=== PATIENT | male | born 1950 | race African-American/Black ===

== ENCOUNTER → 2017-01-05 | Outpatient (CLI) | payer MEDICARE ==
--- NOTE | 2017-01-05 16:14 | US ---
EXAMINATION TYPE: US venous doppler duplex LE LT DATE OF EXAM: 01/05/2017 3:51 PM COMPARISON: NONE CLINICAL HISTORY: M79.662 Pain, R22.42 Swelling. Fall last week and now back leg pain, no swelling, n o h/o dvt SIDE PERFORMED: Left VESSELS IMAGED: External Iliac Vein (EIV) Common Femoral Vein Deep Femoral Vein Greater Saphenous Vein * Femoral Vein Popliteal Vein Small Saphenous Vein * Proximal Calf Veins (* superficial vessels) TECHNOLOGIST IMPRESSION: Left Leg: Appears negative for DVT *(8tech impression to Dr Valle's office @ 355 IMPRESSION: 1. No ultrasound evidence deep venous thrombosis left lower extremity.
== END | disposition home or self-care (01) ==
LOC: RADUSWWP 15:05
PROVIDERS: ATTEND Internal Medicine
DX: M79.662 Pain in left lower leg (principal); R22.42 Localized swelling, mass and lump, left lower limb

== ENCOUNTER 2018-09-07 18:45 | Inpatient (IN) | payer MEDICARE ==
[2018-09-07] MEDS ORDERED: ONDANSETRON 4 MG/2 ML VIAL IVP STA (19:07)
[2018-09-07] MEDS ORDERED: PANTOPRAZOLE 40 MG/10 ML VIAL IVP STA (19:07)
--- NOTE | 2018-09-07 19:11 | ED ---
General Adult HPI - General Chief complaint: Abdominal Pain Stated complaint: Abd pain Time Seen by Provider: 09/07/18 18:55 Source: patient, EMS, RN notes reviewed Mode of arrival: EMS Limitations: no limitations - History of Present Illness Initial comments: This is a 67-year-old male who presents emergency Department with a past medical history significant for diabetes hypertension and being an alcoholic. Patient comes in today stating he had a few glasses of wine today and about 2 hours prior to arrival he started having severe epigastric abdominal pain and nausea. Patient states he did not vomit however. Patient states she's had no diarrhea. Patient states the pain is crampy in nature and does not radiate anywhere. Patient denies any chest pain palpitations difficulty breathing shortness of breath. Patient denies any diaphoretic episodes. Patient denies any recent fevers or chills. Patient denies having similar symptoms as per patient denies any history of pancreatitis. Patient denies any surgery on his abdomen. - Related Data Home Medications Medication Instructions Recorded Confirmed Allopurinol [Zyloprim] 300 mg PO DAILY 10/11/17 09/07/18 Hydrochlorothiazide 25 mg PO DAILY 10/11/17 09/07/18 Lisinopril [Zestril] 20 mg PO BID 10/11/17 09/07/18 Simvastatin [Zocor] 20 mg PO DAILY 10/11/17 09/07/18 metFORMIN HCL [Glucophage] 500 mg PO BID 10/11/17 09/07/18 Atenolol [Tenormin] 25 mg PO BID 10/12/17 09/07/18 Ergocalciferol (Vitamin D2) 50,000 unit PO Q7D 09/07/18 09/07/18 [Vitamin D2] Sildenafil [Revatio] 20 mg PO DAILY 09/07/18 09/07/18 traMADol HCL [Ultram] 50 mg PO Q8H PRN 09/07/18 09/07/18 Allergies Allergy/AdvReac Type Severity Reaction Status Date / Time No Known Allergies Allergy Verified 09/07/18 19:18 Review of Systems ROS Statement: Those systems with pertinent positive or pertinent negative responses have been documented in the HPI. ROS Other: All systems not noted in ROS Statement are negative. Past Medical History Past Medical History: Diabetes Mellitus, Hyperlipidemia, Hypertension, Rheumatoid Arthritis (RA), Seizure Disorder Additional Past Medical History / Comment(s): GOUT. History of Any Multi-Drug Resistant Organisms: None Reported Past Surgical History: Orthopedic Surgery Additional Past Surgical History / Comment(s): RIGHT knee replacement. Past Anesthesia/Blood Transfusion Reactions: No Reported Reaction Past Psychological History: No Psychological Hx Reported Smoking Status: Light tobacco smoker Past Alcohol Use History: Occasional Past Drug Use History: None Reported - Past Family History Mother Family Medical History: Unable to Obtain General Exam - General Exam Comments Initial Comments: GENERAL: Patient is well-developed and well-nourished. Patient is nontoxic and well- hydrated and is in mild distress. ENT: Neck is soft and supple. No significant lymphadenopathy is noted. Oropharynx is clear. Moist mucous membranes. Neck has full range of motion without eliciting any pain. EYES: The sclera were anicteric and conjunctiva were pink and moist. Extraocular movements were intact and pupils were equal round and reactive to light. Eyelids were unremarkable. PULMONARY: Unlabored respirations. Good breath sounds bilaterally. No audible rales rhonchi or wheezing was noted. CARDIOVASCULAR: There is a regular rate and rhythm without any murmurs gallops or rubs. ABDOMEN: Patient has right upper and epigastric abdominal pain. No palpable organomegaly was noted. There is no palpable pulsatile mass. SKIN: Skin is clear with no lesions or rashes and otherwise unremarkable. NEUROLOGIC: Patient is alert and oriented x3. Cranial nerves II through XII are grossly intact. Motor and sensory are also intact. Normal speech, volume and content. Symmetrical smile. MUSCULOSKELETAL: Normal extremities with adequate strength and full range of motion. No lower extremity swelling or edema. No calf tenderness. LYMPHATICS: No significant lymphadenopathy is noted PSYCHIATRIC: Normal psychiatric evaluation. Limitations: no limitations Course Vital Signs 09/07/18 18:53 Temperature 98 F Pulse Rate 78 Respiratory 18 Rate Blood Pressure 115/73 O2 Sat by Pulse 98 Oximetry Medical Decision Making - Medical Decision Making EKG shows sinus rhythm at 70 bpm GA interval is 256 QRS is 102 QT interval 432 QTC is 492. Patient's EKG shows some T-wave inversions in leads II, III, and F aVF. There is also some T-wave inversions in the precordial leads V4 V5 and V6. New. Computed tomography scan shows some mild pulmonary edema. Patient has pancreatitis. Patient is also intoxicated. Patient will be admitted. - Lab Data Result diagrams: 09/07/18 18:58 09/07/18 18:58 Lab Results 09/07/18 09/07/18 09/07/18 Range/Units 18:58 18:58 18:58 WBC 7.6 (3.8-10.6) k/uL RBC 4.52 (4.30-5.90) m/uL Hgb 13.5 (13.0-17.5) gm/dL Hct 42.5 (39.0-53.0) % MCV 94.0 (80.0-100.0) fL MCH 29.9 (25.0-35.0) pg MCHC 31.8 (31.0-37.0) g/dL RDW 13.6 (11.5-15.5) % Plt Count 227 (150-450) k/uL Neutrophils % 43 % Lymphocytes % 46 % Monocytes % 5 % Eosinophils % 2 % Basophils % 1 % Neutrophils # 3.2 (1.3-7.7) k/uL Lymphocytes # 3.5 (1.0-4.8) k/uL Monocytes # 0.4 (0-1.0) k/uL Eosinophils # 0.1 (0-0.7) k/uL Basophils # 0.0 (0-0.2) k/uL PT (9.0-12.0) sec INR (<1.2) APTT (22.0-30.0) sec Sodium 141 (137-145) mmol/L Potassium 4.0 (3.5-5.1) mmol/L Chloride 104 (98-107) mmol/L Carbon Dioxide 24 (22-30) mmol/L Anion Gap 13 mmol/L BUN 30 H (9-20) mg/dL Creatinine 1.56 H (0.66-1.25) mg/dL Est GFR (CKD-EPI)AfAm 53 (>60 ml/min/1.73 sqM) Est GFR (CKD-EPI)NonAf 46 (>60 ml/min/1.73 sqM) Glucose 254 H (74-99) mg/dL Calcium 9.9 (8.4-10.2) mg/dL Total Bilirubin 0.4 (0.2-1.3) mg/dL AST 23 (17-59) U/L ALT 23 (21-72) U/L Alkaline Phosphatase 76 (38-126) U/L Total Creatine Kinase 272 H (55-170) U/L CK-MB (CK-2) 2.1 (0.0-2.4) ng/mL CK-MB (CK-2) Rel Index 0.8 Troponin I <0.012 (0.000-0.034) ng/mL Total Protein 7.6 (6.3-8.2) g/dL Albumin 4.2 (3.5-5.0) g/dL Amylase 172 H (30-110) U/L Lipase 2750 H (23-300) U/L Serum Alcohol 184 mg/dL 09/07/18 Range/Units 18:58 WBC (3.8-10.6) k/uL RBC (4.30-5.90) m/uL Hgb (13.0-17.5) gm/dL Hct (39.0-53.0) % MCV (80.0-100.0) fL MCH (25.0-35.0) pg MCHC (31.0-37.0) g/dL RDW (11.5-15.5) % Plt Count (150-450) k/uL Neutrophils % % Lymphocytes % % Monocytes % % Eosinophils % % Basophils % % Neutrophils # (1.3-7.7) k/uL Lymphocytes # (1.0-4.8) k/uL Monocytes # (0-1.0) k/uL Eosinophils # (0-0.7) k/uL Basophils # (0-0.2) k/uL PT 9.9 (9.0-12.0) sec INR 1.0 (<1.2) APTT 22.7 (22.0-30.0) sec Sodium (137-145) mmol/L Potassium (3.5-5.1) mmol/L Chloride (98-107) mmol/L Carbon Dioxide (22-30) mmol/L Anion Gap mmol/L BUN (9-20) mg/dL Creatinine (0.66-1.25) mg/dL Est GFR (CKD-EPI)AfAm (>60 ml/min/1.73 sqM) Est GFR (CKD-EPI)NonAf (>60 ml/min/1.73 sqM) Glucose (74-99) mg/dL Calcium (8.4-10.2) mg/dL Total Bilirubin (0.2-1.3) mg/dL AST (17-59) U/L ALT (21-72) U/L Alkaline Phosphatase (38-126) U/L Total Creatine Kinase (55-170) U/L CK-MB (CK-2) (0.0-2.4) ng/mL CK-MB (CK-2) Rel Index Troponin I (0.000-0.034) ng/mL Total Protein (6.3-8.2) g/dL Albumin (3.5-5.0) g/dL Amylase (30-110) U/L Lipase (23-300) U/L Serum Alcohol mg/dL Disposition Clinical Impression: Pancreatitis, Alcohol intoxication Disposition: ADMITTED IP TO THIS HOSP Referrals: Keiko Valle MD [Primary Care Provider] - 1-2 days Time of Disposition: 20:51
[2018-09-07 19:44] LABS: Basophils % (A) 1 %; Eosinophils # (A) 0.1 k/uL (0-0.7); Eosinophils % (A) 2 %; HCT 42.5 % (39.0-53.0); HGB 13.5 gm/dL (13.0-17.5); Lymphocytes # (A) 3.5 k/uL (1.0-4.8); Lymphocytes % (A) 46 %; MCH 29.9 pg (25.0-35.0); MCHC 31.8 g/dL (31.0-37.0); Monocytes # (A) 0.4 k/uL (0-1.0); Monocytes % (A) 5 %; Neutrophils # (A) 3.2 k/uL (1.3-7.7); Neutrophils % (A) 43 %; Platelet Count 227 k/uL (150-450); RBC 4.52 m/uL (4.30-5.90); RDW 13.6 % (11.5-15.5); WBC 7.6 k/uL (3.8-10.6)
[2018-09-07 19:58] LABS: Partial Thromboplastin Time 22.7 sec (22.0-30.0); Prothrombin Time 9.9 sec (9.0-12.0)
[2018-09-07 20:05] LABS: Albumin 4.2 g/dL (3.5-5.0); Calcium 9.9 mg/dL (8.4-10.2); Creatine Kinase 272 U/L (55-170); Total Bilirubin 0.4 mg/dL (0.2-1.3); Total Protein 7.6 g/dL (6.3-8.2)
[2018-09-07 20:16] LABS: Creatine Kinase MB 2.1 ng/mL (0.0-2.4); Troponin I <0.012 ng/mL (0.000-0.034)
--- NOTE | 2018-09-07 20:20 | XR ---
EXAMINATION TYPE: XR chest 2V DATE OF EXAM: 09/07/2018 COMPARISON: 10/13/2017 HISTORY: Epigastric pain after eating TECHNIQUE: Frontal and lateral views of the chest are obtained. FINDINGS: There is no new focal air space opacity, pleural effusion, or pneumothorax seen. Gui B lines and cephalization are seen suggestive of interstitial pulmonary edema and pulmonary vascular co ngestion in combination with cardiomegaly. The osseous structures are intact. IMPRESSION: Mild interstitial edema and pulmonary vascular congestion in combination with cardiomega ly suggest cardiogenic fluid overload.
--- NOTE | 2018-09-07 20:41 | CT ---
EXAMINATION TYPE: CT abdomen pelvis wo con DATE OF EXAM: 09/07/2018 COMPARISON: None HISTORY: Epigastric pain after eating. CT DLP: 973.6 mGycm Automated exposure control for dose reduction was used. TECHNIQUE: Helical acquisition of images was performed from the lung bases through the pelvis. FINDINGS: LUNG BASES: Groundglass opacities are seen of the lung bases that could relate to atelectasis or pneu monitis. There is a small hiatal hernia. LIVER/GB: No cholelithiasis. Unenhanced liver is unremarkable in morphology. PANCREAS: Unremarkable SPLEEN: No significant abnormality is seen. ADRENALS: No nodularity or thickening. KIDNEYS: No hydronephrosis or nephrolithiasis. No urinary bladder calculi. There is a right renal cys tic lesion measuring up to 3.3 cm FREE AIR: No free air is visualized REPRODUCTIVE ORGANS: Resting clinic heterogenous containing central zone calcifications. URINARY BLADDER: No significant abnormality is seen. PELVIC ADENOPATHY: Within the limitations of lack of intravenous contrast there is no evidence of gr eater than 1 cm short axis lymph node within the abdomen or pelvis. OSSEOUS STRUCTURES: Mild sacroiliac joint sclerosis is seen bilaterally, left greater than right. Mi ld multilevel degenerative changes of the spine are also noted. BOWEL: No dilated large or small bowel is seen. Moderate amount retained colonic stool is noted. Few sigmoid diverticula are present. Appendix is within normal limits of size. OTHER: Mild atherosclerosis is seen of the abdominal aorta and its branches. There is a fat filled um bilical hernia. IMPRESSION: 1. NO EVIDENCE OF ACUTE APPENDICITIS OR BOWEL OBSTRUCTION. NO CT CHOLELITHIASIS. 2. GROUNDGLASS OPACITIES AT THE LUNG BASES MAY RELATE TO PNEUMONITIS OR FLUID OVERLOAD. 3. SMALL HIATAL HERNIA.
[2018-09-07] MEDS ORDERED: HYDROmorphone 1 MG/ML 1 ML SYRINGE IM PRN (20:52)
[2018-09-07] MEDS ORDERED: ONDANSETRON 4 MG/2 ML VIAL IVP PRN (20:52)
[2018-09-07] MEDS ORDERED: HYDROmorphone 1 MG/ML 1 ML SYRINGE IVP STA (20:52)
[2018-09-07] MEDS: SODIUM CHLORIDE 0.9% 1,000 ML IV ONE (21:06)
[2018-09-07 21:38] LABS: Appearance,Urine Clear (Clear); Bacteria,Urine Many /hpf; Bilirubin,Urine Negative (Negative); Blood,Urine Negative (Negative); Cellular Casts,Urine 1 /lpf (0); Color,Urine Yellow; Glucose,Urine (UA) Negative (Negative); Hyaline Casts,Urine 1 /lpf (0-2); Ketones,Urine Negative (Negative); Leukocyte Esterase,Urine Small (Negative); Mucus,Urine Rare /hpf; Nitrite,Urine Positive (Negative); Protein,Urine Trace (Negative); RBC,Urine 1 /hpf (0-5); Specific Gravity,Urine 1.013 (1.001-1.035); Squamous Epithelial Cell,Urine <1 /hpf (0-4); Urobilinogen,Urine <2.0 mg/dL (<2.0); WBC,Urine 11 /hpf (0-5)
[2018-09-08] MEDS: SODIUM CHLORIDE 0.9% 1,000 ML IV ONE (00:55)
[2018-09-08] MEDS ORDERED: HYDROmorphone 1 MG/ML 1 ML SYRINGE IVP PRN (01:16)
[2018-09-08 06:19] LABS: Glucose,Whole Blood 221 mg/dL (75-99)
[2018-09-08 09:06] LABS: Basophils % (A) 0 %; Eosinophils # (A) 0.1 k/uL (0-0.7); Eosinophils % (A) 1 %; HGB 12.7 gm/dL (13.0-17.5); Lymphocytes # (A) 2.2 k/uL (1.0-4.8); Lymphocytes % (A) 28 %; MCH 30.3 pg (25.0-35.0); MCHC 31.8 g/dL (31.0-37.0); MCV 95.2 fL (80.0-100.0); Mean Platelet Volume 6.5; Monocytes # (A) 0.4 k/uL (0-1.0); Monocytes % (A) 5 %; Neutrophils % (A) 64 %; Platelet Count 218 k/uL (150-450); RDW 13.9 % (11.5-15.5); WBC 7.9 k/uL (3.8-10.6)
[2018-09-08 09:19] LABS: Albumin 3.9 g/dL (3.5-5.0); Calcium 9.1 mg/dL (8.4-10.2); Potassium 4.6 mmol/L (3.5-5.1); Total Bilirubin 0.5 mg/dL (0.2-1.3); Total Protein 7.2 g/dL (6.3-8.2)
[2018-09-08] MEDS: SILDENAFIL 20 MG TAB PO SCH (10:04)
[2018-09-08] MEDS: ALLOPURINOL 300 MG TAB PO SCH (10:05)
[2018-09-08] MEDS: ATENOLOL 25 MG TAB PO SCH ×2 (10:05→20:16)
[2018-09-08] MEDS: traMADol 50 MG TAB PO PRN ×2 (10:08→18:48)
--- NOTE | 2018-09-08 10:21 | P.HPIM ---
History of Present Illness H&P Date: 09/08/18 Chief Complaint: Pancreatitis This is 67-year-old male presents to emergency room with complaints of abdominal pain and nausea. Patient states he is cooking dinner and had 2 glasses of wine and then started experiencing abdominal pain with nausea. Patient denies any vomiting or diarrhea. Patient has a known past medical history of diabetes mellitus, hyperlipidemia, hypertension, rheumatoid arthritis and seizure disorder. Patient does report history of cocaine and marijuana use but denies any use at this time. Patient also denies excessive alcohol consumption. Patient states he stopped drinking 5-6 years ago and occasionaly drinks now. Chest x-ray completed showing mild interstitial edema and pulmonary vascular congestion, patient with cardiomegaly suggest cardiogenic fluid overload. CT of abdomen and pelvis completed showing no evidence of acute appendicitis or bowel obstruction. No CT cholelithiasis. Groundglass Opacities at the lung base may relate to pneumonitis or fluid overload. Small hiatal hernia. Amylase 172 and lipase 2750. Initial creatinine 1.56 and bun 30. EKG also completed showing sinus rhythm with first- degree AV block. Cardiology services have been consulted At this time patient denies nausea vomiting diarrhea. Patient denies chest pain or shortness breath. Patient denies any urinary burning or frequency Review of Systems please refer to HPI otherwise unremarkable Past Medical History Past Medical History: Diabetes Mellitus, Hyperlipidemia, Hypertension, Rheumatoid Arthritis (RA), Seizure Disorder Additional Past Medical History / Comment(s): GOUT. dc 2016 quad tendon rupture rt knee History of Any Multi-Drug Resistant Organisms: None Reported Past Surgical History: Orthopedic Surgery Additional Past Surgical History / Comment(s): pt stated has had 2 rt knee arthroscopies and 2 rt knee replacements, lt shoulder sx has titanium anchors, ganglion cysts lt wrist Past Anesthesia/Blood Transfusion Reactions: No Reported Reaction Smoking Status: Current some day smoker - Past Family History Mother Family Medical History: Unable to Obtain Additional Family Medical History / Comment(s): parents pt was raised by grandmother Medications and Allergies Home Medications Medication Instructions Recorded Confirmed Type Allopurinol [Zyloprim] 300 mg PO DAILY 10/11/17 09/07/18 History Hydrochlorothiazide 25 mg PO DAILY 10/11/17 09/07/18 History Lisinopril [Zestril] 20 mg PO BID 10/11/17 09/07/18 History Simvastatin [Zocor] 20 mg PO DAILY 10/11/17 09/07/18 History metFORMIN HCL [Glucophage] 500 mg PO BID 10/11/17 09/07/18 History Atenolol [Tenormin] 25 mg PO BID 10/12/17 09/07/18 History Ergocalciferol (Vitamin D2) 50,000 unit PO Q7D 09/07/18 09/07/18 History [Vitamin D2] Sildenafil [Revatio] 20 mg PO DAILY 09/07/18 09/07/18 History traMADol HCL [Ultram] 50 mg PO Q8H PRN 09/07/18 09/07/18 History Allergies Allergy/AdvReac Type Severity Reaction Status Date / Time No Known Allergies Allergy Verified 09/07/18 19:18 Physical Exam Vitals: Vital Signs Temp Pulse Pulse Resp BP BP Pulse Ox 09/08/18 00:00 86 16 09/07/18 23:00 99.0 F 86 16 158/84 95 09/07/18 21:10 84 18 137/64 95 09/07/18 18:53 98 F 78 18 115/73 98 Intake and Output 09/07/18 09/08/18 09/08/18 22:59 06:59 14:59 Intake Total 400 Output Total 300 575 Balance 100 -575 Intake: Intake, IV Titration 400 Amount Sodium Chloride 0.9% 1, 400 000 ml @ 100 mls/hr IV . Q10H ONE Rx#:[id number] Output: Urine 300 575 Other: Voiding Method Urinal Weight 120.202 kg 120.202 kg Head normocephalic Neck supple Lungs clear to auscultation bilaterally no wheezing or crackles Heart regular rate and rhythm S1-S2, no rub or gallop Abdomen tenderness to epigastric area consultation Extremities no edema Neuro alert and orientated to 3 Results CBC & Chem 7: 09/08/18 08:42 09/08/18 08:42 Labs: Abnormal Lab Results - Last 24 Hours (Table) 09/07/18 09/07/18 09/07/18 Range/Units 18:58 18:58 21:10 RBC (4.30-5.90) m/uL Hgb (13.0-17.5) gm/dL BUN 30 H (9-20) mg/dL Creatinine 1.56 H (0.66-1.25) mg/dL Glucose 254 H (74-99) mg/dL POC Glucose (mg/dL) (75-99) mg/dL Total Creatine Kinase 272 H (55-170) U/L Amylase 172 H (30-110) U/L Lipase 2750 H (23-300) U/L Urine Protein Trace H (Negative) Ur Leukocyte Esterase Small H (Negative) Urine WBC 11 H (0-5) /hpf Urine Bacteria Many H (None) /hpf Urine Mucus Rare H (None) /hpf 09/08/18 09/08/18 09/08/18 Range/Units 06:07 08:42 08:42 RBC 4.20 L (4.30-5.90) m/uL Hgb 12.7 L (13.0-17.5) gm/dL BUN 24 H (9-20) mg/dL Creatinine (0.66-1.25) mg/dL Glucose 205 H (74-99) mg/dL POC Glucose (mg/dL) 221 H (75-99) mg/dL Total Creatine Kinase (55-170) U/L Amylase 132 H (30-110) U/L Lipase 838 H (23-300) U/L Urine Protein (Negative) Ur Leukocyte Esterase (Negative) Urine WBC (0-5) /hpf Urine Bacteria (None) /hpf Urine Mucus (None) /hpf Thrombosis Risk Factor Assmnt - Choose All That Apply Each Factor Represents 1 point: Obesity (BMI >25) Each Risk Factor Represents 2 Points: Age 61-74 years Thrombosis Risk Factor Assessment Total Risk Factor Score: 3 Thrombosis Risk Factor Assessment Level: Moderate Risk Assessment and Plan Assessment: 1. Acute pancreatitis. Initial lipase [address] of abdomen completed showing no evidence of acute appendicitis or bowel obstruction. No CT cholelithiasis. Ground glass opacities at the lung bases may relate to pneumonitis or fluid overload. Small hiatal hernia. This time patient is maintained nothing by mouth normal saline at 100. GI services have been consulted 2. First-degree AV block. EKG completed showing sinus rhythm with first- degree AV block. Chest x-ray completed showing mild interstitial edema and pulmonary vascular congestion, effusion with cardiomegaly suggest cardiogenic fluid overload. Cardiology services have been consulted and 2-D echo has been ordered 3. Acute kidney injury. Initial creatinine 1.56 and bun 30. We'll continue to monitor closely. 4. Urinary analysis showing small amount of leukocyte Estrace patient is asymptomatic. Will order urine culture at this time 5. Diabetes mellitus. We'll hold metformin at this time sliding scale added at this time. 6. History of hyperlipidemia 7. History of essential hypertension. Atenolol resumed 8. History of rheumatoid arthritis 9. History of seizure disorder DVT prophylaxis Lovenox. GI prophylaxis Protonix A.m. labs ordered. Consults for cardiology, GI and primary services have been placed I performed an examination of the patient and discussed their management with the Nurse Practitioner. I have reviewed the Nurse Practitioner's notes and agree with the documented findings and plan of care Time with Patient: Greater than 30 (Greater than 60% of the total time spent in counseling and coordination of care. I performed an examination of the patient and discussed their management with the Nurse Practitioner. I have reviewed the Nurse Practitioner's notes and agree with the documented findings and plan of care)
[2018-09-08 11:44] LABS: Glucose,Whole Blood 211 mg/dL (75-99)
--- NOTE | 2018-09-08 11:48 | ECHOF ---
Referral Reason:cardiomegaly MEASUREMENTS -------- HEIGHT: 182.9 cm WEIGHT: 120.2 kg BP: 158/84 RVIDd: 3.6 cm (< 3.3) IVSd: 1.0 cm (0.6 - 1.1) LVIDd: 5.6 cm (3.9 - 5.3) LVPWd: 1.3 cm (0.6 - 1.1) IVSs: 1.8 cm LVIDs: 3.9 cm LVPWs: 1.9 cm LA Diam: 3.6 cm (2.7 - 3.8) LAESV Index (A-L): 30.51 ml/m Ao Diam: 3.6 cm (2.0 - 3.7) AV Cusp: 2.2 cm (1.5 - 2.6) MV EXCURSION: 18.048 mm (> 18.000) MV EF SLOPE: 93 mm/s (70 - 150) MV E Jose Guadalupe: 1.07 m/s MV DecT: 218 ms MV A Jose Guadalupe: 1.22 m/s MV E/A Ratio: 0.88 FINDINGS -------- Sinus rhythm. This was a technically good study. The left ventricular size is normal. There is mild concentric left ventricular hypertrophy. Overa ll left ventricular systolic function is normal with, an EF between 55 - 60 %. The right ventricle is mildly enlarged. LA is midly dilated 29-33ml/m2. The right atrium is normal in size. There is mild aortic valve sclerosis. Mild mitral annular calcification present. There is trace mitral regurgitation. The tricuspid valve appears structurally normal. There is no pulmonic regurgitation present. The aortic root size is normal. Normal inferior vena cava with normal inspiratory collapse consistent with estimated right atrial pre ssure of 5 mmHg. The inferior vena cava is mildly dilated. There is no pericardial effusion. CONCLUSIONS -------- 1. Sinus rhythm. 2. This was a technically good study. 3. The left ventricular size is normal. 4. There is mild concentric left ventricular hypertrophy. 5. Overall left ventricular systolic function is normal with, an EF between 55 - 60 %. 6. The right ventricle is mildly enlarged. 7. LA is midly dilated 29-33ml/m2. 8. The right atrium is normal in size. 9. There is mild aortic valve sclerosis. 10. Mild mitral annular calcification present. 11. There is trace mitral regurgitation. 12. The tricuspid valve appears structurally normal. 13. There is no pulmonic regurgitation present. 14. The aortic root size is normal. 15. Normal inferior vena cava with normal inspiratory collapse consistent with estimated right atrial pressure of 5 mmHg. 16. The inferior vena cava is mildly dilated. 17. There is no pericardial effusion. WEBSITE OPTIMIZATION STRATEGIST: Mary Mendoza RDCS
[2018-09-08] MEDS: INSULIN ASPART 100 UNIT/ML 1 ML 10 ML VIAL SQ SCH ×3 (13:02→20:16)
[2018-09-08 13:15] LABS: Hemoglobin A1C 9.1 % (4.0-6.0)
--- NOTE | 2018-09-08 13:59 | P.CNPUL ---
History of Present Illness Consult date: 09/08/18 Reason for consult: dyspnea, chest pain, pulmonary fibrosis, abnormal CXR/CT, obstructive sleep apnea Chief complaint: Abdominal pain and discomfort History of present illness: 67-year-old male with history of hypertension hypertensive cardiovascular disease and history of excessive call consumption in the past patient the underwent the arthrocentesis of right [facility] did have a steroid injection as well has been doing fairly well without any specific problems or issues had his dinner last night with 2 glasses of wine, patient developed abdominal discomfort and pain and eventually came into emergency department for further evaluation, denies any nausea vomiting or diarrhea, 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 Patient does report history of cocaine and marijuana use but denies any use at this time. Patient also denies excessive alcohol consumption. Patient states he stopped drinking 5-6 years ago and occasionaly drinks now. Chest x-ray completed showing mild interstitial edema and pulmonary vascular congestion, patient with cardiomegaly suggest cardiogenic fluid overload. CT of abdomen and pelvis completed showing no evidence of acute appendicitis or bowel obstruction. No CT cholelithiasis. Groundglass Opacities at the lung base noted, appeared to be more medical claims representative of fluid overload and heart failure than pneumonia. Small hiatal hernia. Amylase 172 and lipase 2750. Initial creatinine 1.56 and bun 30. EKG also completed showing sinus rhythm with first-degree AV block. Patient denies any loss of consciousness) denies any pain or radiation of pain from the chest denies similar episode of pancreatitis in the past patient does have ongoing history of chronic snoring and sleepiness during the day he has not been formally evaluated for sleep disorder breathing and sleep apnea Review of Systems All systems: negative Past Medical History Past Medical History: Diabetes Mellitus, Hyperlipidemia, Hypertension, Rheumatoid Arthritis (RA), Seizure Disorder Additional Past Medical History / Comment(s): GOUT. dc 2017 quad tendon rupture rt knee History of Any Multi-Drug Resistant Organisms: None Reported Past Surgical History: Orthopedic Surgery Additional Past Surgical History / Comment(s): pt stated has had 2 rt knee arthroscopies and 2 rt knee replacements, lt shoulder sx has titanium anchors, ganglion cysts lt wrist Past Anesthesia/Blood Transfusion Reactions: No Reported Reaction Smoking Status: Current some day smoker - Past Family History Mother Family Medical History: Unable to Obtain Additional Family Medical History / Comment(s): parents pt was raised by grandmother Medications and Allergies Home Medications Medication Instructions Recorded Confirmed Type Allopurinol [Zyloprim] 300 mg PO DAILY 10/11/17 09/07/18 History Hydrochlorothiazide 25 mg PO DAILY 10/11/17 09/07/18 History Lisinopril [Zestril] 20 mg PO BID 10/11/17 09/07/18 History Simvastatin [Zocor] 20 mg PO DAILY 10/11/17 09/07/18 History metFORMIN HCL [Glucophage] 500 mg PO BID 10/11/17 09/07/18 History Atenolol [Tenormin] 25 mg PO BID 10/12/17 09/07/18 History Ergocalciferol (Vitamin D2) 50,000 unit PO Q7D 09/07/18 09/07/18 History [Vitamin D2] Sildenafil [Revatio] 20 mg PO DAILY 09/07/18 09/07/18 History traMADol HCL [Ultram] 50 mg PO Q8H PRN 09/07/18 09/07/18 History Allergies Allergy/AdvReac Type Severity Reaction Status Date / Time No Known Allergies Allergy Verified 09/07/18 19:18 Physical Exam Vitals: Vital Signs Temp Pulse Pulse Resp BP BP Pulse Ox 09/08/18 11:05 153/81 09/08/18 09:58 97.7 F 65 16 178/90 97 09/08/18 00:00 86 16 09/07/18 23:00 99.0 F 86 16 158/84 95 09/07/18 21:10 84 18 137/64 95 09/07/18 18:53 98 F 78 18 115/73 98 Intake and Output 09/07/18 09/08/18 09/08/18 22:59 06:59 14:59 Intake Total 400 Output Total 300 575 Balance 100 -575 Intake: Intake, IV Titration 400 Amount Sodium Chloride 0.9% 1, 400 000 ml @ 100 mls/hr IV . Q10H ONE Rx#:[id number] Output: Urine 300 575 Other: Voiding Method Urinal Weight 120.202 kg 120.202 kg - Constitutional General appearance: disheveled, mild distress, no acute distress, obese - EENT Eyes: EOMI, PERRLA, poor dentition, normal appearance ENT: normal oropharynx Ears: bilateral: normal - Neck Carotids: bilateral: upstroke normal Thyroid: bilateral: normal size - Respiratory Respiratory: bilateral: diminished, rales, negative: dullness, rhonchi, wheezing - Cardiovascular Rhythm: regular Heart sounds: normal: S1, S2 - Gastrointestinal General gastrointestinal: normal bowel sounds - Genitourinary Mild diffuse tenderness noted predominantly in the upper quadrants - Neurologic Neurologic: CNII-XII intact - Musculoskeletal Musculoskeletal: gait normal, generalized weakness, strength equal bilaterally - Psychiatric Psychiatric: A&O x's 3, appropriate affect, intact judgment & insight Results - Laboratory Findings CBC and BMP: 09/08/18 08:42 09/08/18 08:42 PT/INR, D-dimer PT 9.9 sec (9.0-12.0) 09/07/18 18:58 INR 1.0 (<1.2) 09/07/18 18:58 Abnormal lab findings: Abnormal Labs 09/07/18 09/07/18 09/07/18 18:58 18:58 18:58 RBC Hgb BUN 30 H Creatinine 1.56 H Glucose 254 H POC Glucose (mg/dL) Hemoglobin A1c 9.1 H Total Creatine Kinase 272 H Amylase 172 H Lipase 2750 H Urine Protein Ur Leukocyte Esterase Urine WBC Urine Bacteria Urine Mucus 09/07/18 09/08/18 09/08/18 21:10 06:07 08:42 RBC 4.20 L Hgb 12.7 L BUN Creatinine Glucose POC Glucose (mg/dL) 221 H Hemoglobin A1c Total Creatine Kinase Amylase Lipase Urine Protein Trace H Ur Leukocyte Esterase Small H Urine WBC 11 H Urine Bacteria Many H Urine Mucus Rare H 09/08/18 09/08/18 08:42 11:33 RBC Hgb BUN 24 H Creatinine Glucose 205 H POC Glucose (mg/dL) 211 H Hemoglobin A1c Total Creatine Kinase Amylase 132 H Lipase 838 H Urine Protein Ur Leukocyte Esterase Urine WBC Urine Bacteria Urine Mucus - Diagnostic Findings Chest x-ray: report reviewed, image reviewed CT scan - chest: report reviewed, image reviewed Assessment and Plan Assessment: Acute pancreatitis Groundglass attenuation/prominent interstitium doubt related to pneumonia appears more likely related to component of fluid overload and possibly heart failure Hypertension hypertensive cardiovascular disease LVH Possible sleep disorder breathing and sleep apnea History of extensive smoking and alcohol consumption in the past Plan: Overall plan includes Supportive care for acute pancreatitis Pain control Optimize control of blood pressure Patient has been consult about smoking COPD and sleep disorder breathing and sleep apnea We'll hold on antibiotics and breathing treatments for now and monitor observe clinical course closely further recommendations pending plan of care as per clinical response of the patient Time with Patient: Greater than 30
--- NOTE | 2018-09-08 14:20 | P.CRDCN ---
History of Present Illness History of present illness: This is a pleasant 67-year-old male past medical history significant for diabetes mellitus, hypertension, dyslipidemia, gout and seizure disorder. He also is a former smoker who quit in 2002. He used to be a heavy drinker but hasn't drank heavily for 5-6 years. 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 We have been asked to see him in consultation for EKG abnormalities. He states yesterday he was making lasagna and had a couple glasses of wine while cooking. He then started feeling a burning in the epigastric and left upper quadrant associated with nausea. The pain does not radiate anywhere. He denies associated chest pain , shortness of breath, vomiting, dizziness, palpitations or diaphoresis. He also denies orhopnea or PND. Upon arrival to the hospital he was found to have a significantly elevated lipase of 2750. He has been diagnosed with acute pancreatitis. He still has mild abdominal tenderness but his nausea has improved. EKG reveals sinus mechanism with first degree AVB and anterior-lateral T-wave inversions as well as inferior ST depression and T-wave inversions. When compared to old EKG from 09/2017 this appears to be a new finding. Chest x-ray reveals mild interstitial edema and pulmonary vascular congestion. CT abdomen and pelvis reveals a glass opacities at the lung bases possibly related to pneumonitis or fluid overload, small hiatal hernia, no acute appendicitis, bowel obstruction or cholelithiasis noted. Laboratory data reviewed, WBC 7.9, hemoglobin 12.7, platelets 218, sodium 141, potassium 4.6, creatinine 1.1 down from 1.56 on admission, cardiac enzymes negative 2, amylase on admission 172 down to 132 today, lipase on admission 2750 down to 838 today, NTproBNP 59. Current cardiac medications include atenolol 25 mg twice a day, hydrochlorothiazide 25 mg daily, lisinopril 20 mg twice a day and simvastatin 20 mg daily. He also takes allopurinol, metformin, Ultram and sildenafil. At the time of my exam: CONSTITUTIONAL: Denies fever. Denies chills. EYES: Denies blurred vision. Denies vision changes. Denies eye pain. EARS, NOSE, MOUTH & THROAT: Denies headache. Denies sore throat. Denies ear pain. CARDIOVASCULAR: Denies chest pain. Denies shortness of breath. Denies orthopnea. Denies PND. Denies palpitations. RESPIRATORY: Denies cough. GASTROINTESTINAL: Denies abdominal pain. Denies diarrhea. Denies constipation. Denies nausea. Denies vomiting. MUSCULOSKELETAL: Denies myalgias. INTEGUMENTARY: Denies pruitis. Denies rash. NEUROLOGIC: Denies numbness. Denies tingling. Denies weakness. PSYCHIATRIC: Denies anxiety. Denies depression. ENDOCRINE: Denies fatigue. Denies weight change. Denies polydipsia. Denies polyurina. GENITOURINARY: Denies burning, hematuria or urgency with micturation. HEMATOLOGIC: Denies history of anemia. Denies bleeding. Blood pressure 158/84 heart rate 86 afebrile maintaining oxygen saturation on room air GENERAL: This is a 67-year-old male in no apparent distress at the time of my examination. Obese. HEENT: Head is atraumatic, normocephalic. Pupils are equal, round. Sclerae anicteric. Conjunctivae are clear. Mucous membranes of the mouth are moist. Neck is supple. There is no jugular venous distention. No carotid bruit is heard. LUNGS: Clear to auscultation no wheezes, rales or rhonchi. No chest wall tenderness is noted on palpation or with deep breathing. HEART: Regular rate and rhythm without murmurs, rubs or gallops. S1 and S2 heard. ABDOMEN: Soft, mildly tender left upper quadrant. Bowel sounds are heard. No organomegaly noted. EXTREMITIES: No evidence of peripheral edema and no calf tenderness noted. VASCULAR: Radial and dorsalis pedis pulses palpated, no evidence of clubbing. NEUROLOGIC: Patient is awake, alert and oriented x3. ASSESSMENT Acute pancreatitis Abnormal EKG Hypertension Diabetes mellitus History of alcohol abuse in the past Former nicotine dependence Obesity, BMI 35 PLAN Echocardiogram has been obtained and reviewed revealing preserved left ventricular systolic function with ejection fraction 55-60% and mildly dilated left atrium. In the absence of anginal symptoms, negative troponin and normal echo we will treat him medically at this time. No evidence of fluid overload or heart failure clinically. Ongoing medical management of acute pancreatitis. Recommend he follow up in the office upon discharge for outpatient stress testing. Lifestyle modifications recommended for weight loss as well as complete alcohol cessation. Thank you kindly for this consultation. Nurse Practitioner note has been reviewed, I agree with a documented findings and plan of care. Patient was seen and examined. Past Medical History Past Medical History: Diabetes Mellitus, Hyperlipidemia, Hypertension, Rheumatoid Arthritis (RA), Seizure Disorder Additional Past Medical History / Comment(s): GOUT. dc 2017 quad tendon rupture rt knee History of Any Multi-Drug Resistant Organisms: None Reported Past Surgical History: Orthopedic Surgery Additional Past Surgical History / Comment(s): pt stated has had 2 rt knee arthroscopies and 2 rt knee replacements, lt shoulder sx has titanium anchors, ganglion cysts lt wrist Past Anesthesia/Blood Transfusion Reactions: No Reported Reaction Smoking Status: Current some day smoker - Past Family History Mother Family Medical History: Unable to Obtain Additional Family Medical History / Comment(s): parents pt was raised by grandmother Medications and Allergies Home Medications Medication Instructions Recorded Confirmed Type Allopurinol [Zyloprim] 300 mg PO DAILY 10/11/17 09/07/18 History Hydrochlorothiazide 25 mg PO DAILY 10/11/17 09/07/18 History Lisinopril [Zestril] 20 mg PO BID 10/11/17 09/07/18 History Simvastatin [Zocor] 20 mg PO DAILY 10/11/17 09/07/18 History metFORMIN HCL [Glucophage] 500 mg PO BID 10/11/17 09/07/18 History Atenolol [Tenormin] 25 mg PO BID 10/12/17 09/07/18 History Ergocalciferol (Vitamin D2) 50,000 unit PO Q7D 09/07/18 09/07/18 History [Vitamin D2] Sildenafil [Revatio] 20 mg PO DAILY 09/07/18 09/07/18 History traMADol HCL [Ultram] 50 mg PO Q8H PRN 09/07/18 09/07/18 History Allergies Allergy/AdvReac Type Severity Reaction Status Date / Time No Known Allergies Allergy Verified 09/07/18 19:18 Physical Exam Vitals: Vital Signs Temp Pulse Pulse Resp BP BP Pulse Ox 09/08/18 00:00 86 16 09/07/18 23:00 99.0 F 86 16 158/84 95 09/07/18 21:10 84 18 137/64 95 09/07/18 18:53 98 F 78 18 115/73 98 Intake and Output 1109/08/18 09/08/18 22:59 06:59 14:59 Intake Total 400 Output Total 300 575 Balance 100 -575 Intake: Intake, IV Titration 400 Amount Sodium Chloride 0.9% 1, 400 000 ml @ 100 mls/hr IV . Q10H ONE Rx#:[id number] Output: Urine 300 575 Other: Voiding Method Urinal Weight 120.202 kg 120.202 kg Results 09/08/18 08:42 09/08/18 08:42 Cardiac Enzymes 09/07/18 09/07/18 09/08/18 Range/Units 18:58 18:58 08:42 AST 23 31 (17-59) U/L CK-MB (CK-2) 2.1 (0.0-2.4) ng/mL Troponin I <0.012 (0.000-0.034) ng/mL Coagulation 09/07/18 Range/Units 18:58 PT 9.9 (9.0-12.0) sec APTT 22.7 (22.0-30.0) sec CBC 09/07/18 Range/Units 18:58 WBC 7.6 (3.8-10.6) k/uL RBC 4.52 (4.30-5.90) m/uL Hgb 13.5 (13.0-17.5) gm/dL Hct 42.5 (39.0-53.0) % Plt Count 227 (150-450) k/uL Comprehensive Metabolic Panel 09/07/18 09/08/18 Range/Units 18:58 08:42 Sodium 141 141 (137-145) mmol/L Potassium 4.0 4.6 (3.5-5.1) mmol/L Chloride 104 106 (98-107) mmol/L Carbon Dioxide 24 27 (22-30) mmol/L BUN 30 H 24 H (9-20) mg/dL Creatinine 1.56 H 1.11 (0.66-1.25) mg/dL Glucose 254 H 205 H (74-99) mg/dL Calcium 9.9 9.1 (8.4-10.2) mg/dL AST 23 31 (17-59) U/L ALT 23 32 (21-72) U/L Alkaline Phosphatase 76 74 (38-126) U/L Total Protein 7.6 7.2 (6.3-8.2) g/dL Albumin 4.2 3.9 (3.5-5.0) g/dL Current Medications Generic Name Dose Route Start Last Admin Trade Name Freq PRN Reason Stop Dose Admin Allopurinol 300 mg 09/08/18 09:00 Zyloprim PO DAILY [facility] Atenolol 25 mg 09/08/18 09:00 Tenormin PO BID [facility] Hydromorphone HCl 1 mg 09/08/18 01:16 09/08/18 05:42 Dilaudid IVP 1 mg Q4HR PRN Administration SEVERE Pain Ondansetron HCl 4 mg 09/07/18 20:52 Zofran IVP Q6HR PRN Nausea And Vomiting Sildenafil Citrate 20 mg 09/08/18 09:00 Revatio PO DAILY [facility] Tramadol HCl 50 mg 09/08/18 08:12 Ultram PO Q8H PRN MODERATE Pain Intake and Output 09/07/18 09/08/18 09/08/18 22:59 06:59 14:59 Intake Total 400 Output Total 300 575 Balance 100 -575 Intake: Intake, IV Titration 400 Amount Sodium Chloride 0.9% 1, 400 000 ml @ 100 mls/hr IV . Q10H ONE Rx#:[id number] Output: Urine 300 575 Other: Voiding Method Urinal Weight 120.202 kg 120.202 kg 09/07/18 18:58 09/08/18 08:42
[2018-09-08 15:44] VITALS: BMI 35.9
[2018-09-08 17:19] LABS: Glucose,Whole Blood 175 mg/dL (75-99)
[2018-09-08 20:14] LABS: Glucose,Whole Blood 183 mg/dL (75-99)
[2018-09-08] MEDS: LISINOPRIL 20 MG TAB PO SCH (20:16)
[2018-09-09] MEDS: traMADol 50 MG TAB PO PRN (04:31)
[2018-09-09 07:15] LABS: Glucose,Whole Blood 186 mg/dL (75-99)
[2018-09-09] MEDS: PANTOPRAZOLE 40 MG TABLET PO SCH (07:23)
[2018-09-09] MEDS: HYDROCHLOROTHIAZIDE 25 MG TAB PO SCH (07:23)
[2018-09-09] MEDS: SILDENAFIL 20 MG TAB PO SCH (07:24)
[2018-09-09] MEDS: ENOXAPARIN 40 MG/0.4 ML SYRINGE SQ SCH (07:24)
[2018-09-09] MEDS: LISINOPRIL 20 MG TAB PO SCH ×2 (07:24→21:48)
[2018-09-09] MEDS: ALLOPURINOL 300 MG TAB PO SCH (07:24)
[2018-09-09] MEDS: INSULIN ASPART 100 UNIT/ML 1 ML 10 ML VIAL SQ SCH ×4 (07:25→21:48)
--- NOTE | 2018-09-09 08:25 | P.PN ---
Subjective Progress Note Date: 09/09/18 Principal diagnosis: Acute pancreatitis, congestive heart failure likely acute on chronic diastolic heart failure, acute pulmonary edema related to above as well as component of acute pancreatitis, groundglass attenuation at the bases doubt pneumonia appears to be related to above, morbid obesity, sleep disorder breathing and sleep apnea likely to be evaluated further outpatient setting 09/09/2018, patient seen eval reexamined during the rounds he is ambulating in the room and hallway breathing more comfortably still have mild pain in the abdomen, hemodynamic status stable denies any cough or sputum production he confirmed that he doesn't snore with apneic events as witnessed by the family members as well as the staff, his labs are reviewed the amylase lipase level are progressively improving 67-year-old male with history of hypertension hypertensive cardiovascular disease and history of excessive call consumption in the past patient the underwent the arthrocentesis of right knee [facility] did have a steroid injection as well has been doing fairly well without any specific problems or issues had his dinner last night with 2 glasses of wine, patient developed abdominal discomfort and pain and eventually came into emergency department for further evaluation, denies any nausea vomiting or diarrhea, 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 Patient does report history of cocaine and marijuana use but denies any use at this time. Patient also denies excessive alcohol consumption. Patient states he stopped drinking 5-6 years ago and occasionaly drinks now. Chest x-ray completed showing mild interstitial edema and pulmonary vascular congestion, patient with cardiomegaly suggest cardiogenic fluid overload. CT of abdomen and pelvis completed showing no evidence of acute appendicitis or bowel obstruction. No CT cholelithiasis. 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 Small hiatal hernia. Amylase 172 and lipase 2750. Initial creatinine 1.56 and bun 30. EKG also completed showing sinus rhythm with first-degree AV block. Patient denies any loss of consciousness) denies any pain or radiation of pain from the chest denies similar episode of pancreatitis in the past patient does have ongoing history of chronic snoring and sleepiness during the day he has not been formally evaluated for sleep disorder breathing and sleep apnea Objective - Vital Signs Vital signs: Vital Signs Temp 98.4 F 09/08/18 23:49 Pulse 58 L 09/09/18 03:36 Resp 18 09/09/18 03:36 BP 114/60 09/08/18 23:49 Pulse Ox 94 L 09/08/18 23:49 Intake & Output 09/08/18 09/09/18 09/09/18 18:59 06:59 18:59 Intake Total 1446 Output Total 575 Balance 871 Weight 120.202 kg 120.202 kg Intake: Oral 1446 Output: Urine 575 Other: Voiding Method Urinal # Voids 4 3 - Exam - Constitutional General appearance: disheveled, mild distress, no acute distress, obese - EENT Eyes: EOMI, PERRLA, poor dentition, normal appearance ENT: normal oropharynx Ears: bilateral: normal - Neck Carotids: bilateral: upstroke normal Thyroid: bilateral: normal size - Respiratory Respiratory: bilateral: diminished, rales, negative: dullness, rhonchi, wheezing - Cardiovascular Rhythm: regular Heart sounds: normal: S1, S2 - Gastrointestinal General gastrointestinal: normal bowel sounds - Genitourinary Mild diffuse tenderness noted predominantly in the upper quadrants - Neurologic Neurologic: CNII-XII intact - Musculoskeletal Musculoskeletal: gait normal, generalized weakness, strength equal bilaterally - Psychiatric Psychiatric: A&O x's 3, appropriate affect, intact judgment & insight - Labs CBC & Chem 7: 09/08/18 08:42 09/08/18 08:42 Labs: Abnormal Lab Results - Last 24 Hours (Table) 09/07/18 09/08/18 09/08/18 Range/Units 18:58 08:42 08:42 RBC 4.20 L (4.30-5.90) m/uL Hgb 12.7 L (13.0-17.5) gm/dL BUN 24 H (9-20) mg/dL Glucose 205 H (74-99) mg/dL POC Glucose (mg/dL) (75-99) mg/dL Hemoglobin A1c 9.1 H (4.0-6.0) % Amylase 132 H (30-110) U/L Lipase 838 H (23-300) U/L 09/08/18 09/08/18 09/08/18 Range/Units 11:33 17:08 20:02 RBC (4.30-5.90) m/uL Hgb (13.0-17.5) gm/dL BUN (9-20) mg/dL Glucose (74-99) mg/dL POC Glucose (mg/dL) 211 H 175 H 183 H (75-99) mg/dL Hemoglobin A1c (4.0-6.0) % Amylase (30-110) U/L Lipase (23-300) U/L 09/09/18 Range/Units 07:04 RBC (4.30-5.90) m/uL Hgb (13.0-17.5) gm/dL BUN (9-20) mg/dL Glucose (74-99) mg/dL POC Glucose (mg/dL) 186 H (75-99) mg/dL Hemoglobin A1c (4.0-6.0) % Amylase (30-110) U/L Lipase (23-300) U/L Microbiology - Last 24 Hours (Table) 09/08/18 11:30 Urine Culture - Preliminary Urine,Clean Catch Assessment and Plan Assessment: Acute pancreatitis Groundglass attenuation/prominent interstitium doubt related to pneumonia appears more likely related to component of fluid overload and possibly heart failure, however I early acute lung injury related to acute pancreatitis cannot be excluded but less likely Hypertension hypertensive cardiovascular disease LVH Possible sleep disorder breathing and sleep apnea History of extensive smoking and alcohol consumption in the past Plan: Overall plan includes Monitor observe diet closely recommend soft versus clear diet Supportive care for acute pancreatitis Pain control Optimize control of blood pressure Patient has been consult about smoking COPD and sleep disorder breathing and sleep apnea Sleep study and PFT in outpatient setting We'll hold on antibiotics and breathing treatments for now and monitor observe clinical course closely further recommendations pending plan of care as per clinical response of the patient Time with Patient: Greater than 30
[2018-09-09 08:32] LABS: Basophils % (A) 0 %; Eosinophils % (A) 0 %; HCT 38.1 % (39.0-53.0); HGB 11.9 gm/dL (13.0-17.5); Lymphocytes # (A) 2.2 k/uL (1.0-4.8); Lymphocytes % (A) 31 %; MCH 29.7 pg (25.0-35.0); MCHC 31.1 g/dL (31.0-37.0); MCV 95.4 fL (80.0-100.0); Mean Platelet Volume 6.8; Monocytes # (A) 0.3 k/uL (0-1.0); Monocytes % (A) 5 %; Neutrophils # (A) 4.6 k/uL (1.3-7.7); Neutrophils % (A) 62 %; Platelet Count 202 k/uL (150-450); RBC 3.99 m/uL (4.30-5.90); RDW 13.6 % (11.5-15.5); WBC 7.3 k/uL (3.8-10.6)
[2018-09-09 08:48] LABS: ALT 23 U/L (21-72); AST 16 U/L (17-59); Albumin 3.4 g/dL (3.5-5.0); Alkaline Phosphatase 75 U/L (38-126); Amylase 47 U/L (30-110); Anion Gap 10 mmol/L; Blood Urea Nitrogen 17 mg/dL (9-20); Calcium 8.5 mg/dL (8.4-10.2); Carbon Dioxide 24 mmol/L (22-30); Chloride 105 mmol/L (98-107); Glucose 240 mg/dL (74-99); Lipase 106 U/L (23-300); Potassium 4.3 mmol/L (3.5-5.1); Sodium 139 mmol/L (137-145); Total Bilirubin 0.5 mg/dL (0.2-1.3); Total Protein 6.6 g/dL (6.3-8.2)
[2018-09-09] MEDS: ATENOLOL 25 MG TAB PO SCH (09:22)
[2018-09-09] MEDS ORDERED: ALPRAZolam 0.5 MG TAB PO PRN (09:39)
[2018-09-09] MEDS ORDERED: ALPRAZolam 0.25 MG TAB PO PRN (09:39)
[2018-09-09] MEDS ORDERED: SODIUM CHLORIDE 0.9% 1,000 ML in EMPTY BAG 1 BAG IV ONE (09:39)
[2018-09-09] MEDS ORDERED: NITROGLYCERIN SL TABS 0.4 MG TAB SUBLINGUAL PRN (09:39)
[2018-09-09] MEDS ORDERED: ATORVASTATIN 80 MG TAB PO STA (09:39)
[2018-09-09] MEDS ORDERED: ASPIRIN 325 MG TAB PO ONE (09:45)
--- NOTE | 2018-09-09 10:10 | P.PN ---
Subjective Progress Note Date: 09/09/18 This is 67-year-old male presents to emergency room with complaints of abdominal pain and nausea. Patient states he is cooking dinner and had 2 glasses of wine and then started experiencing abdominal pain with nausea. Patient denies any vomiting or diarrhea. Patient has a known past medical history of diabetes mellitus, hyperlipidemia, hypertension, rheumatoid arthritis and seizure disorder. Patient does report history of cocaine and marijuana use but denies any use at this time. Patient also denies excessive alcohol consumption. Patient states he stopped drinking 5-6 years ago and occasionaly drinks now. Chest x-ray completed showing mild interstitial edema and pulmonary vascular congestion, patient with cardiomegaly suggest cardiogenic fluid overload. CT of abdomen and pelvis completed showing no evidence of acute appendicitis or bowel obstruction. No CT cholelithiasis. Groundglass Opacities at the lung base may relate to pneumonitis or fluid overload. Small hiatal hernia. Amylase 172 and lipase 2750. Initial creatinine 1.56 and bun 30. EKG also completed showing sinus rhythm with first- degree AV block. Cardiology services have been consulted At this time patient denies nausea vomiting diarrhea. Patient denies chest pain or shortness breath. Patient denies any urinary burning or frequency On 09/09/2018 patient is currently resting in bed. Patient states he feels much improved from yesterday. Patient is alert and oriented 3. This time patient denies chest pain or shortness breath. Patient denies nausea vomiting or diarrhea. Patient denies any urinary burning or frequency. Objective - Vital Signs Vital signs: Vital Signs Temp 98.4 F 09/09/18 07:00 Pulse 59 L 09/09/18 07:00 Resp 16 09/09/18 07:00 BP 164/87 09/09/18 07:00 Pulse Ox 95 09/09/18 07:00 Intake & Output 09/08/18 09/09/18 09/09/18 18:59 06:59 18:59 Intake Total 1446 Output Total 575 Balance 871 Weight 120.202 kg 120.202 kg Intake: Oral 1446 Output: Urine 575 Other: Voiding Method Urinal # Voids 4 3 - Exam Head normocephalic Neck supple Lungs clear to auscultation bilaterally no wheezing or crackles Heart regular rate and rhythm S1-S2, no rub or gallop Abdomen is soft nontender nondistended positive bowel sounds no hepatosplenomegaly Extremities no edema Neuro alert and orientated to 3 - Labs CBC & Chem 7: 09/09/18 07:49 09/09/18 07:49 Labs: Abnormal Lab Results - Last 24 Hours (Table) 09/07/18 09/08/18 09/08/18 Range/Units 18:58 11:33 17:08 RBC (4.30-5.90) m/uL Hgb (13.0-17.5) gm/dL Hct (39.0-53.0) % Glucose (74-99) mg/dL POC Glucose (mg/dL) 211 H 175 H (75-99) mg/dL Hemoglobin A1c 9.1 H (4.0-6.0) % AST (17-59) U/L Albumin (3.5-5.0) g/dL 09/08/18 09/09/18 09/09/18 Range/Units 20:02 07:04 07:49 RBC 3.99 L (4.30-5.90) m/uL Hgb 11.9 L (13.0-17.5) gm/dL Hct 38.1 L (39.0-53.0) % Glucose (74-99) mg/dL POC Glucose (mg/dL) 183 H 186 H (75-99) mg/dL Hemoglobin A1c (4.0-6.0) % AST (17-59) U/L Albumin (3.5-5.0) g/dL 09/09/18 Range/Units 07:49 RBC (4.30-5.90) m/uL Hgb (13.0-17.5) gm/dL Hct (39.0-53.0) % Glucose 240 H (74-99) mg/dL POC Glucose (mg/dL) (75-99) mg/dL Hemoglobin A1c (4.0-6.0) % AST 16 L (17-59) U/L Albumin 3.4 L (3.5-5.0) g/dL Microbiology - Last 24 Hours (Table) 09/08/18 11:30 Urine Culture - Preliminary Urine,Clean Catch Assessment and Plan Assessment: 1. Acute pancreatitis. Initial lipase [address] of abdomen completed showing no evidence of acute appendicitis or bowel obstruction. No CT cholelithiasis. Ground glass opacities at the lung bases may relate to pneumonitis or fluid overload. Small hiatal hernia. This time patient is maintained nothing by mouth normal saline at 100. GI services have been consulted 2. First-degree AV block. EKG completed showing sinus rhythm with first- degree AV block. Chest x-ray completed showing mild interstitial edema and pulmonary vascular congestion, effusion with cardiomegaly suggest cardiogenic fluid overload. 2-D echo completed showing EF of 55-60%. Per nursing staff cardiology planing heart catheterization tomorrow. Patient also having heart rate in the 50s. Medications to be adjusted per cardiology services 3. Acute kidney injury. Initial creatinine 1.56 and bun 30. We'll continue to monitor closely. Resolved 4. Urinary analysis showing small amount of leukocyte Estrace patient is asymptomatic. Will order urine culture at this time 5. Diabetes mellitus. We'll hold metformin at this time sliding scale added at this time. 6. History of hyperlipidemia 7. History of essential hypertension. Atenolol resumed 8. History of rheumatoid arthritis 9. History of seizure disorder 10. Ground glass opacities at the lung bases seen on computed tomography scan. Pulmonary services have been consulted. Per Dr. Knight with pulmonary care, groundglass attenuation doubt related to pneumonia appears more likely related to component of fluid overload and possibly heart failure. We'll hold on antibiotics and breathing treatments for now monitor clinical course closely per Dr. Knight DVT prophylaxis Lovenox. GI prophylaxis Protonix I performed an examination of the patient and discussed their management with the Nurse Practitioner. I have reviewed the Nurse Practitioner's notes and agree with the documented findings and plan of care
--- NOTE | 2018-09-09 10:21 | P.CONS ---
History of Present Illness - Reason for Consult Consult date: 09/09/18 pancreatitis Requesting physician: Keiko Valle - Chief Complaint abdominal pain - History of Present Illness 67-year-old gentleman with a past medical history of EtOH consumption, diabetes , hypertension admitted with acute epigastric abdominal pain 1 day. Denies fever chills hematemesis hematochezia or melena. Patient has no history of previous pancreatitis attacks. Patient was drinking alcohol in cooking his foods with [facility] prior to admission. Serum alcohol level 184. White count 7.6. Hemoglobin 13.5. MCV 94. INR 1.0. Lipase 2750. Amylase 172. LFTs within normal limits. Today pancreatic enzymes normalized amylase 47. Lipase 106. No history of known pancreatic disorders. CT abdomen and pelvis no evidence of cholelithiasis. Unenhanced liver is unremarkable. Pancreas unremarkable. Review of Systems Constitutional: Denies fever, chills, sweats, weight gain, or loss. HEENT: Negative for migraines, blurred vision or loss, earaches, drainage, tinnitus, oral mucosal lesions, dysphagia, or odynophagia. Cardiac: Negative for chest pain, arrhythmias, or palpitation. Respiratory: Negative for shortness of breath, hemoptysis, cough, or sputum production. Gastrointestinal: See HPI for pertinent findings. Genitourinary: Negative for hematuria, urgency, frequency, polyuria, dysuria, or penile discharge. Musculoskeletal: Negative for muscle aches, swelling, arthritis, and arthralgias. Neurologic: Negative for stroke or TIA. Endocrine: Negative for thyroid problems. Skin: Negative for rash or itching. Psychiatric: Negative history for depression and anxiety Past Medical History Past Medical History: Diabetes Mellitus, Hyperlipidemia, Hypertension, Rheumatoid Arthritis (RA), Seizure Disorder Additional Past Medical History / Comment(s): GOUT. dc 2017 quad tendon rupture rt knee History of Any Multi-Drug Resistant Organisms: None Reported Past Surgical History: Orthopedic Surgery Additional Past Surgical History / Comment(s): pt stated has had 2 rt knee arthroscopies and 2 rt knee replacements, lt shoulder sx has titanium anchors, ganglion cysts lt wrist Past Anesthesia/Blood Transfusion Reactions: No Reported Reaction Smoking Status: Current some day smoker - Past Family History Mother Family Medical History: Unable to Obtain Additional Family Medical History / Comment(s): parents pt was raised by grandmother Medications and Allergies Home Medications Medication Instructions Recorded Confirmed Type Allopurinol [Zyloprim] 300 mg PO DAILY 10/11/17 09/07/18 History Hydrochlorothiazide 25 mg PO DAILY 10/11/17 09/07/18 History Lisinopril [Zestril] 20 mg PO BID 10/11/17 09/07/18 History Simvastatin [Zocor] 20 mg PO DAILY 10/11/17 09/07/18 History metFORMIN HCL [Glucophage] 500 mg PO BID 10/11/17 09/07/18 History Atenolol [Tenormin] 25 mg PO BID 10/12/17 09/07/18 History Ergocalciferol (Vitamin D2) 50,000 unit PO Q7D 09/07/18 09/07/18 History [Vitamin D2] Sildenafil [Revatio] 20 mg PO DAILY 09/07/18 09/07/18 History traMADol HCL [Ultram] 50 mg PO Q8H PRN 09/07/18 09/07/18 History Allergies Allergy/AdvReac Type Severity Reaction Status Date / Time No Known Allergies Allergy Verified 09/07/18 19:18 Physical Exam Vitals: Vital Signs Temp Pulse Resp BP BP Pulse Ox 09/09/18 07:00 98.4 F 59 L 16 164/87 95 09/09/18 03:36 58 L 18 09/09/18 00:00 58 L 18 09/08/18 23:49 98.4 F 56 L 114/60 94 L 09/08/18 20:00 98.2 F 58 L 18 152/79 95 09/08/18 16:44 16 09/08/18 14:40 98.4 F 59 L 150/73 97 09/08/18 11:05 153/81 Intake and Output 09/08/18 09/09/18 09/09/18 22:59 06:59 14:59 Intake Total 823 Balance 823 Intake: Oral 823 Other: Voiding Method Urinal Urinal # Voids 2 3 Weight 120.202 kg 120.202 kg General appearance: The patient is alert, oriented, in no acute distress. HET: Head is normocephalic and atraumatic. Pupils are equal and reactive. Oropharynx is clear without lesions. Neck: Supple without lymphadenopathy. Trachea midline. Heart: S1 S2. Regular rate and rhythm. Lungs: No crackles or wheezes are heard. Abdomen: Soft, nontender, nondistended with bowel sounds. No peritoneal signs. No palpable organomegaly or masses. Extremities: Normal skin color and turgor. No cyanosis, rash, ulceration, clubbing, or edema. Radial and pedal pulses are 2/4 bilaterally. Neurological: No focal deficits. Strength and sensation are grossly intact. Results CBC & Chem 7: 09/09/18 07:49 09/09/18 07:49 Labs: Abnormal Lab Results - Last 24 Hours (Table) 09/07/18 09/08/18 09/08/18 Range/Units 18:58 11:33 17:08 RBC (4.30-5.90) m/uL Hgb (13.0-17.5) gm/dL Hct (39.0-53.0) % Glucose (74-99) mg/dL POC Glucose (mg/dL) 211 H 175 H (75-99) mg/dL Hemoglobin A1c 9.1 H (4.0-6.0) % AST (17-59) U/L Albumin (3.5-5.0) g/dL 09/08/18 09/09/18 09/09/18 Range/Units 20:02 07:04 07:49 RBC 3.99 L (4.30-5.90) m/uL Hgb 11.9 L (13.0-17.5) gm/dL Hct 38.1 L (39.0-53.0) % Glucose (74-99) mg/dL POC Glucose (mg/dL) 183 H 186 H (75-99) mg/dL Hemoglobin A1c (4.0-6.0) % AST (17-59) U/L Albumin (3.5-5.0) g/dL 09/09/18 Range/Units 07:49 RBC (4.30-5.90) m/uL Hgb (13.0-17.5) gm/dL Hct (39.0-53.0) % Glucose 240 H (74-99) mg/dL POC Glucose (mg/dL) (75-99) mg/dL Hemoglobin A1c (4.0-6.0) % AST 16 L (17-59) U/L Albumin 3.4 L (3.5-5.0) g/dL Microbiology - Last 24 Hours (Table) 09/08/18 11:30 Urine Culture - Preliminary Urine,Clean Catch CT scan - abdomen: report reviewed (Dr. Vaughn) Assessment and Plan (1) Acute pancreatitis Narrative/Plan: 67-year-old gentleman with a history of alcohol consumption drinking alcohol prior to admission admitted with acute abdominal pain elevated pancreatic enzymes consistent with acute pancreatitis most likely alcohol induced however other pathology cannot be entirely excluded. CT imaging of the abdomen reported no obvious pathology of the liver or pancreas. Current Visit: Yes Status: Acute Code(s): K85.90 - ACUTE PANCREATITIS WITHOUT NECROSIS OR INFECTION, UNSP SNOMED Code(s): 047845982 Plan: 1. Alcohol abstinence strongly advised. Pancreatic enzymes have improved. We' ll obtain a triglyceride level, KENA and IgG1-4 subclass rule out autoimmune pathology. From a GI standpoint patient can be discharged follow-up in the GI office in 3-4 weeks. Thank you for this kind referral and the opportunity to participate in the care of your patient. This consultation was discussed with Dr. Vaughn. The impression and plan of care have been directed as dictated.
[2018-09-09 12:18] LABS: Glucose,Whole Blood 150 mg/dL (75-99)
[2018-09-09 12:21] LABS: Triglycerides 129 mg/dL (<150)
--- NOTE | 2018-09-09 13:26 | P.PN ---
Subjective This is a pleasant 67-year-old male past medical history significant for diabetes mellitus, hypertension, dyslipidemia, gout and seizure disorder. He also is a former smoker who quit in 2002. He used to be a heavy drinker but hasn't drank heavily for 5-6 years. He denies history of coronary artery disease and has never seen a hematologist oncologist for any reason. We have been asked to see him in consultation for EKG abnormalities. He states yesterday he was making lasagna and had a couple glasses of wine while cooking. He then started feeling a burning in the epigastric and left upper quadrant associated with nausea. The pain does not radiate anywhere. He denies associated chest pain , shortness of breath, vomiting, dizziness, palpitations or diaphoresis. He also denies orhopnea or PND. Upon arrival to the hospital he was found to have a significantly elevated lipase of 2750. He has been diagnosed with acute pancreatitis. He still has mild abdominal tenderness but his nausea has improved. On follow up today he is seen and examined sitting up in bed. He states he has been up walking the halls and has been having symptoms of epigastric discomfort that seems to come when he walks. He also describes symptoms of gas pains with ambulation that improve when he sits down to rest. We have attempted to obtain an old EKG from Dr. Valle's office and there is not one on file for comparison. Blood pressure 164/87 heart rate 59 afebrile and maintaining oxygen saturation on room air. Laboratory data reviewed, WBC 7.3, hemoglobin 11.9, platelets 22, sodium 139, potassium 4.3, creatinine 0.94, lipase 106. GENERAL: This is a 67-year-old male in no apparent distress at the time of my examination. Obese. HEENT: Head is atraumatic, normocephalic. Pupils are equal, round. Sclerae anicteric. Conjunctivae are clear. Mucous membranes of the mouth are moist. Neck is supple. There is no jugular venous distention. No carotid bruit is heard. LUNGS: Clear to auscultation no wheezes, rales or rhonchi. No chest wall tenderness is noted on palpation or with deep breathing. HEART: Regular rate and rhythm without murmurs, rubs or gallops. S1 and S2 heard. EXTREMITIES: No evidence of peripheral edema and no calf tenderness noted. ASSESSMENT Acute pancreatitis Unstable angina Abnormal EKG with epigastric discomfort with exertion in a diabetic patient. May be indicative of unstable angina. Hypertension Diabetes mellitus History of alcohol abuse in the past Former nicotine dependence Obesity, BMI 35 PLAN He continues to have symptoms of epigastric burning that are worse with exertion requiring him to return to bed for rest. When he sits down his symptoms subside. Clinically his lipase has normalized and with EKG changes we are recommending proceeding with cardiac catheterization to further assess the coronary arteries. I have discussed the risks, benefits and alternative therapies for the above-mentioned procedure and for both sedation/analgesia as well as necessary blood product administration, if indicated, as they pertain to this patient. The patient has indicated understanding and acceptance of the risks and procedures discussed. Questions have been answered appropriately and he is agreeable to move forward with above stated procedure. He can have a small meal now and then NPO thereafter. Decrease his atenolol to 25 mg daily from BID for mild bradycardia noted on telemetry. Check lipid panel. Further recommendations to follow based on clinical course. Nurse Practitioner note has been reviewed, I agree with a documented findings and plan of care. Patient was seen and examined. Objective - Vital Signs Vital signs: Vital Signs Temp 98.4 F 09/09/18 07:00 Pulse 59 L 09/09/18 07:00 Resp 16 09/09/18 07:00 BP 164/87 09/09/18 07:00 Pulse Ox 95 09/09/18 07:00 Intake & Output 09/08/18 09/09/18 09/09/18 18:59 06:59 18:59 Intake Total 1446 Output Total 575 Balance 871 Weight 120.202 kg 120.202 kg Intake: Oral 1446 Output: Urine 575 Other: Voiding Method Urinal # Voids 4 3 - Labs CBC & Chem 7: 09/09/18 07:49 09/09/18 07:49 Labs: Abnormal Lab Results - Last 24 Hours (Table) 09/07/18 09/08/18 09/08/18 Range/Units 18:58 17:08 20:02 RBC (4.30-5.90) m/uL Hgb (13.0-17.5) gm/dL Hct (39.0-53.0) % Glucose (74-99) mg/dL POC Glucose (mg/dL) 175 H 183 H (75-99) mg/dL Hemoglobin A1c 9.1 H (4.0-6.0) % AST (17-59) U/L Albumin (3.5-5.0) g/dL 09/09/18 09/09/18 09/09/18 Range/Units 07:04 07:49 07:49 RBC 3.99 L (4.30-5.90) m/uL Hgb 11.9 L (13.0-17.5) gm/dL Hct 38.1 L (39.0-53.0) % Glucose 240 H (74-99) mg/dL POC Glucose (mg/dL) 186 H (75-99) mg/dL Hemoglobin A1c (4.0-6.0) % AST 16 L (17-59) U/L Albumin 3.4 L (3.5-5.0) g/dL 09/09/18 Range/Units 12:16 RBC (4.30-5.90) m/uL Hgb (13.0-17.5) gm/dL Hct (39.0-53.0) % Glucose (74-99) mg/dL POC Glucose (mg/dL) 150 H (75-99) mg/dL Hemoglobin A1c (4.0-6.0) % AST (17-59) U/L Albumin (3.5-5.0) g/dL Microbiology - Last 24 Hours (Table) 09/08/18 11:30 Urine Culture - Preliminary Urine,Clean Catch
[2018-09-09 14:26] LABS: Cholesterol 205 mg/dL (<200); HDL Cholesterol 51 mg/dL (40-60); LDL Cholesterol,Calculated 128 mg/dL (0-99)
[2018-09-09] MEDS ORDERED: DOCUSATE 100 MG CAP PO PRN (16:59)
[2018-09-09 17:17] LABS: Glucose,Whole Blood 210 mg/dL (75-99)
[2018-09-09 20:35] LABS: Glucose,Whole Blood 208 mg/dL (75-99)
[2018-09-10 01:54] VITALS: RESP 18
[2018-09-10 07:16] LABS: Glucose,Whole Blood 205 mg/dL (75-99)
[2018-09-10] MEDS: ENOXAPARIN 40 MG/0.4 ML SYRINGE SQ SCH (07:30)
[2018-09-10 07:39] VITALS: TEMP 98.5
[2018-09-10 08:30] LABS: ALT 25 U/L (21-72); AST 14 U/L (17-59); Albumin 3.4 g/dL (3.5-5.0); Alkaline Phosphatase 77 U/L (38-126); Anion Gap 6 mmol/L; Blood Urea Nitrogen 16 mg/dL (9-20); Calcium 8.7 mg/dL (8.4-10.2); Carbon Dioxide 26 mmol/L (22-30); Chloride 106 mmol/L (98-107); Glucose 205 mg/dL (74-99); Potassium 4.4 mmol/L (3.5-5.1); Sodium 138 mmol/L (137-145); Total Bilirubin 0.5 mg/dL (0.2-1.3); Total Protein 6.6 g/dL (6.3-8.2)
[2018-09-10 08:44] LABS: Basophils % (A) 0 %; Eosinophils % (A) 0 %; HCT 37.9 % (39.0-53.0); HGB 12.2 gm/dL (13.0-17.5); Lymphocytes # (A) 2.4 k/uL (1.0-4.8); Lymphocytes % (A) 35 %; MCH 30.5 pg (25.0-35.0); MCHC 32.3 g/dL (31.0-37.0); MCV 94.3 fL (80.0-100.0); Mean Platelet Volume 7.3; Monocytes # (A) 0.4 k/uL (0-1.0); Monocytes % (A) 6 %; Neutrophils # (A) 3.8 k/uL (1.3-7.7); Neutrophils % (A) 56 %; Platelet Count 192 k/uL (150-450); RBC 4.02 m/uL (4.30-5.90); RDW 13.5 % (11.5-15.5); WBC 6.7 k/uL (3.8-10.6)
[2018-09-10] MEDS ORDERED: ATENOLOL 25 MG TAB PO SCH (09:00)
[2018-09-10] MEDS: HYDROCHLOROTHIAZIDE 25 MG TAB PO SCH (09:01)
[2018-09-10] MEDS: ASPIRIN 81 MG PO SCH ×3 (09:01→12:46)
[2018-09-10] MEDS: PANTOPRAZOLE 40 MG TABLET PO SCH (09:01)
[2018-09-10] MEDS: INSULIN ASPART 100 UNIT/ML 1 ML 10 ML VIAL SQ SCH ×3 (09:01→17:36)
[2018-09-10] MEDS: LISINOPRIL 20 MG TAB PO SCH (09:01)
[2018-09-10] MEDS: ALLOPURINOL 300 MG TAB PO SCH (09:02)
[2018-09-10] MEDS: traMADol 50 MG TAB PO PRN (09:07)
[2018-09-10 10:59] LABS: IgG Subclass 3 55.8 mg/dL (11.0-85.0); IgG Subclass 4 18.8 mg/dL (3.0-175.0)
--- NOTE | 2018-09-10 12:08 | P.PN ---
Subjective Progress Note Date: 09/10/18 This is 67-year-old male presents to emergency room with complaints of abdominal pain and nausea. Patient states he is cooking dinner and had 2 glasses of wine and then started experiencing abdominal pain with nausea. Patient denies any vomiting or diarrhea. Patient has a known past medical history of diabetes mellitus, hyperlipidemia, hypertension, rheumatoid arthritis and seizure disorder. Patient does report history of cocaine and marijuana use but denies any use at this time. Patient also denies excessive alcohol consumption. Patient states he stopped drinking 5-6 years ago and occasionaly drinks now. Chest x-ray completed showing mild interstitial edema and pulmonary vascular congestion, patient with cardiomegaly suggest cardiogenic fluid overload. CT of abdomen and pelvis completed showing no evidence of acute appendicitis or bowel obstruction. No CT cholelithiasis. Groundglass Opacities at the lung base may relate to pneumonitis or fluid overload. Small hiatal hernia. Amylase 172 and lipase 2750. Initial creatinine 1.56 and bun 30. EKG also completed showing sinus rhythm with first- degree AV block. Cardiology services have been consulted At this time patient denies nausea vomiting diarrhea. Patient denies chest pain or shortness breath. Patient denies any urinary burning or frequency On 09/09/2018 patient is currently resting in bed. Patient states he feels much improved from yesterday. Patient is alert and oriented 3. This time patient denies chest pain or shortness breath. Patient denies nausea vomiting or diarrhea. Patient denies any urinary burning or frequency. On 09/10/2018 patient is alert and oriented 3 in no apparent distress, there is no fever or chills no headache or dizziness no chest pain no shortness of breath no cough no nausea or vomiting no abdominal pain no diarrhea and no urinary symptoms. Patient had abnormal EKG on presentation showing first- degree AV block she had pulmonary congestion suggestive of pulmonary edema, he is scheduled to have cardiac catheterization today per cardiology Objective - Vital Signs Vital signs: Vital Signs Temp 98.5 F 09/10/18 07:30 Pulse 54 L 09/10/18 07:30 Resp 18 09/10/18 07:30 BP 164/95 09/10/18 07:35 Pulse Ox 96 09/10/18 07:30 Intake & Output 09/09/18 09/10/18 09/10/18 18:59 06:59 18:59 Output Total 275 Balance -275 Output: Urine 275 Other: # Voids 1 1 - Exam Head normocephalic and atraumatic Neck supple no JVD no goiter Lungs clear to auscultation bilaterally no wheezing or crackles Heart regular rate and rhythm S1-S2, no rub or gallop Abdomen is soft nontender nondistended positive bowel sounds no hepatosplenomegaly Extremities no edema no cyanosis or clubbing Neuro alert and orientated to 3 - Labs CBC & Chem 7: 09/10/18 07:15 09/10/18 07:15 Labs: Abnormal Lab Results - Last 24 Hours (Table) 09/09/18 09/09/18 09/09/18 Range/Units 07:49 12:16 17:16 RBC (4.30-5.90) m/uL Hgb (13.0-17.5) gm/dL Hct (39.0-53.0) % Glucose (74-99) mg/dL POC Glucose (mg/dL) 150 H 210 H (75-99) mg/dL AST (17-59) U/L Albumin (3.5-5.0) g/dL Cholesterol 205 H (<200) mg/dL LDL Cholesterol, Calc 128 H (0-99) mg/dL 09/09/1818 09/10/18 Range/Units 20:34 07:14 07:15 RBC 4.02 L (4.30-5.90) m/uL Hgb 12.2 L (13.0-17.5) gm/dL Hct 37.9 L (39.0-53.0) % Glucose (74-99) mg/dL POC Glucose (mg/dL) 208 H 205 H (75-99) mg/dL AST (17-59) U/L Albumin (3.5-5.0) g/dL Cholesterol (<200) mg/dL LDL Cholesterol, Calc (0-99) mg/dL 09/10/18 Range/Units 07:15 RBC (4.30-5.90) m/uL Hgb (13.0-17.5) gm/dL Hct (39.0-53.0) % Glucose 205 H (74-99) mg/dL POC Glucose (mg/dL) (75-99) mg/dL AST 14 L (17-59) U/L Albumin 3.4 L (3.5-5.0) g/dL Cholesterol (<200) mg/dL LDL Cholesterol, Calc (0-99) mg/dL Microbiology - Last 24 Hours (Table) 09/08/18 11:30 Urine Culture - Final Urine,Clean Catch Escherichia coli Assessment and Plan Plan: 1. Acute pancreatitis. Initial lipase [address] of abdomen completed showing no evidence of acute appendicitis or bowel obstruction. No CT cholelithiasis. Ground glass opacities at the lung bases may relate to pneumonitis or fluid overload. Small hiatal hernia. This time patient is maintained nothing by mouth normal saline at 100. GI services have been consulted 2. First-degree AV block. EKG completed showing sinus rhythm with first- degree AV block. Chest x-ray completed showing mild interstitial edema and pulmonary vascular congestion, effusion with cardiomegaly suggest cardiogenic fluid overload. 2-D echo completed showing EF of 55-60%. Per nursing staff cardiology planing heart catheterization tomorrow. Patient also having heart rate in the 50s. Medications to be adjusted per cardiology services 3. Acute kidney injury. Initial creatinine 1.56 and bun 30. We'll continue to monitor closely. Resolved 4. Urinary analysis showing small amount of leukocyte Estrace patient is asymptomatic. Will order urine culture at this time 5. Diabetes mellitus. We'll hold metformin at this time sliding scale added at this time. 6. History of hyperlipidemia 7. History of essential hypertension. Atenolol resumed 8. History of rheumatoid arthritis 9. History of seizure disorder 10. Ground glass opacities at the lung bases seen on computed tomography scan. Pulmonary services have been consulted. Per Dr. Knight with pulmonary care, groundglass attenuation doubt related to pneumonia appears more likely related to component of fluid overload and possibly heart failure. We'll hold on antibiotics and breathing treatments for now monitor clinical course closely per Dr. Knight DVT prophylaxis Lovenox. GI prophylaxis Protonix
[2018-09-10 12:32] LABS: Glucose,Whole Blood 120 mg/dL (75-99)
[2018-09-10] MEDS ORDERED: MIDAZOLAM 2 MG/2 ML VIAL ONE ×2 (13:06→13:19)
[2018-09-10] MEDS ORDERED: LIDOCAINE 1% INJ 10MG/ML (20 ML MDV) ONE (13:07)
[2018-09-10] MEDS ORDERED: VERAPAMIL 2.5 MG/ML 2 ML AMP ONE (13:07)
[2018-09-10] MEDS ORDERED: HEPARIN SODIUM 1,000 UN/ML (10ML VL) ONE (13:07)
[2018-09-10] MEDS ORDERED: MIDAZOLAM 2 MG/2 ML VIAL IV ONE (13:17)
[2018-09-10] MEDS: MIDAZOLAM 2 MG/2 ML VIAL IV ONE ×2 (13:19→13:26)
[2018-09-10] MEDS ORDERED: LIDOCAINE 1% INJ 10MG/ML (20 ML MDV) SQ ONE ×2 (13:20→13:22)
[2018-09-10] MEDS ORDERED: IV FLUID CONTINUATION 1,000 ML IV ONE (13:20)
[2018-09-10] MEDS: VERAPAMIL SYRINGE (5 MG/10 ML) INTRAARTER ONE ×2 (13:25→13:36)
[2018-09-10] MEDS ORDERED: IOPAMIDOL-370 125ML BTL INJ ONE (13:35)
[2018-09-10] MEDS ORDERED: RX INFO: IV CONTRAST WAS GIVEN 1 EACH MISC MISCELLANE PRN (13:42)
[2018-09-10] MEDS ORDERED: SODIUM CHLORIDE 0.9% 1,000 ML IV SCH (13:45)
[2018-09-10 14:33] LABS: Glucose,Whole Blood 119 mg/dL (75-99)
--- NOTE | 2018-09-10 15:58 | CC ---
CARDIAC CATHETERIZATION REPORT DATE OF SERVICE: 09/10/2018 PERFORMING PHYSICIAN: Dov Buckner MD, rn surgical. PROCEDURES PERFORMED: 1. Selective right and left coronary angiogram. 2. Left heart catheterization. INDICATION: This is a pleasant 67-year-old gentleman with diabetes, hypertension and dyslipidemia who was admitted to the hospital with epigastric discomfort and was diagnosed with acute pancreatitis. During his hospital stay, he was experiencing chest discomfort with exertion with EKG showing dynamic ST changes with T-wave inversion in the inferolateral leads. Because of that, a heart catheterization was advised, given the nature of his chest discomfort as well as his multiple risk factors. APPROACH: Right radial artery. COMPLICATIONS: None. LEVEL OF SEDATION: Moderate; sedation length of 18 minutes. PROCEDURE DESCRIPTION: After obtaining informed consent, the patient was brought to the cardiac lift slab operator. The right radial artery was cannulated using micropuncture technique, and the micropuncture wire passed easily. Then I placed a 6-Korean sheath in the right radial artery. I gave the patient 2 mg of Verapamil IA and 10,000 units of heparin IV. Subsequently I did selective right and left coronary angiogram using JR4 and JL3.5 catheters. Left heart catheterization was performed using 6-Korean pigtail catheter. The procedure was completed without any complication. SELECTIVE CORONARY ANGIOGRAM: 1. Right coronary artery is a large-caliber vessel and it is a dominant vessel. It is angiographically normal. It distally bifurcates into PDA and PLV branches. Both are angiographically normal. 2. The left main is angiographically normal. It bifurcates into a nondominant left circumflex and left anterior descending artery. 3. The left circumflex is a large-caliber vessel. It is a nondominant vessel. The proximal circumflex is normal and gives rise to a large OM branch which appeared to be angiographically normal. The mid circumflex is normal and the circumflex distally is normal as well. 4. The LAD. The proximal LAD is angiographically normal. It gives rise to the first diagonal branch which appeared to be normal. The mid LAD is normal and gives rise to a large diagonal branch which appeared to be angiographically normal as well. The mid to distal and distal LAD are angiographically normal. HEMODYNAMICS: The left ventricular end-diastolic pressure is 14 mmHg, and no significant gradient was identified across the aortic valve. CONCLUSION: 1. Normal coronary angiogram. 2. Normal left ventricular end-diastolic pressure. POST-PROCEDURE MANAGEMENT: Medical treatment. MMMINDI / LAMONTEN: [id number] /
--- NOTE | 2018-09-10 15:58 | LTR ---
September 10, 2018 To: Dr. Valle Re: Sherrell Love (1950) Dear Dr. Valle, Mr. Sherrell Love underwent a heart catheterization that revealed normal coronaries. I want to thank you for allowing me to participate in his care. Please do not hesitate to call us with any question or concern. Sincerely, MD ELI Weiss / LAMONTEN: [id number] /
[2018-09-10] MEDS ORDERED: PNEUMOCOCCAL VACC-PNEUMOVAX 23 25 MCG/0.5 ML VIAL IM ONE (16:09)
--- NOTE | 2018-09-10 17:02 | P.DS ---
Providers Date of admission: 09/07/18 20:53 Expected date of discharge: 09/10/18 Attending physician: Keiko Valle Consults: 09/07/18 23:17 Consult Physician Routine Consulting Provider: Robyn Romero Consult Reason/Comments: prolonged QT Do you want consulting provider notified?: Yes 09/08/18 10:15 Consult Physician Routine Consulting Provider: Deandra Pardo Consult Reason/Comments: Pancreatitis Do you want consulting provider notified?: Yes 09/08/18 10:18 Consult Physician Routine Consulting Provider: Hao Knight Consult Reason/Comments: Groundglass opacities at the lung bases Do you want consulting provider notified?: Yes Primary care physician: Keiko Leonard [facility] Course: Diagnoses on discharge: 1. Acute pancreatitis. Initial lipase [address] of abdomen completed showing no evidence of acute appendicitis or bowel obstruction. No CT cholelithiasis. Ground glass opacities at the lung bases may relate to pneumonitis or fluid overload. Small hiatal hernia. This time patient is maintained nothing by mouth normal saline at 100. GI services have been consulted 2. First-degree AV block. EKG completed showing sinus rhythm with first- degree AV block. Chest x-ray completed showing mild interstitial edema and pulmonary vascular congestion, effusion with cardiomegaly suggest cardiogenic fluid overload. 2-D echo completed showing EF of 55-60%. Per nursing staff cardiology planing heart catheterization tomorrow. Patient also having heart rate in the 50s. Medications to be adjusted per cardiology services 3. Acute kidney injury. Initial creatinine 1.56 and bun 30. We'll continue to monitor closely. Resolved 4. Urinary analysis showing small amount of leukocyte Estrace patient is asymptomatic. Will order urine culture at this time 5. Diabetes mellitus. We'll hold metformin at this time sliding scale added at this time. 6. History of hyperlipidemia 7. History of essential hypertension. Atenolol resumed 8. History of rheumatoid arthritis 9. History of seizure disorder 10. Ground glass opacities at the lung bases seen on computed tomography scan. Pulmonary services have been consulted. Per Dr. Knight with pulmonary care, groundglass attenuation doubt related to pneumonia appears more likely related to component of fluid overload and possibly heart failure. We'll hold on antibiotics and breathing treatments for now monitor clinical course closely per Dr. Knight Hospital course: This is 67-year-old male presents to emergency room with complaints of abdominal pain and nausea. Patient states he is cooking dinner and had 2 glasses of wine and then started experiencing abdominal pain with nausea. Patient denies any vomiting or diarrhea. Patient has a known past medical history of diabetes mellitus, hyperlipidemia, hypertension, rheumatoid arthritis and seizure disorder. Patient does report history of cocaine and marijuana use but denies any use at this time. Patient also denies excessive alcohol consumption. Patient states he stopped drinking 5-6 years ago and occasionaly drinks now. Chest x-ray completed showing mild interstitial edema and pulmonary vascular congestion, patient with cardiomegaly suggest cardiogenic fluid overload. CT of abdomen and pelvis completed showing no evidence of acute appendicitis or bowel obstruction. No CT cholelithiasis. Groundglass Opacities at the lung base may relate to pneumonitis or fluid overload. Small hiatal hernia. Amylase 172 and lipase 2750. Initial creatinine 1.56 and bun 30. EKG also completed showing sinus rhythm with first- degree AV block. Cardiology services have been consulted At this time patient denies nausea vomiting diarrhea. Patient denies chest pain or shortness breath. Patient denies any urinary burning or frequency On 09/09/2018 patient is currently resting in bed. Patient states he feels much improved from yesterday. Patient is alert and oriented 3. This time patient denies chest pain or shortness breath. Patient denies nausea vomiting or diarrhea. Patient denies any urinary burning or frequency. On 09/10/2018 patient is alert and oriented 3 in no apparent distress, there is no fever or chills no headache or dizziness no chest pain no shortness of breath no cough no nausea or vomiting no abdominal pain no diarrhea and no urinary symptoms. Patient had abnormal EKG on presentation showing first- degree AV block she had pulmonary congestion suggestive of pulmonary edema, he is scheduled to have cardiac catheterization today per cardiology. Patient underwent cardiac catheterization today by Dr. Phelan which revealed normal coronary arteries patient was cleared for discharge by cardiology he was discharged home he will be followed in our office in 2-3 days for further evaluation and treatment Plan - Discharge Summary Discharge Rx Participant: Yes New Discharge Prescriptions: New Atenolol [Tenormin] 25 mg PO DAILY tab Continue Simvastatin [Zocor] 20 mg PO DAILY Lisinopril [Zestril] 20 mg PO BID Hydrochlorothiazide 25 mg PO DAILY Allopurinol [Zyloprim] 300 mg PO DAILY traMADol HCL [Ultram] 50 mg PO Q8H PRN PRN Reason: Pain Ergocalciferol (Vitamin D2) [Vitamin D2] 50,000 unit PO Q7D Discontinued metFORMIN HCL [Glucophage] 500 mg PO BID Atenolol [Tenormin] 25 mg PO BID Sildenafil [Revatio] 20 mg PO DAILY Discharge Medication List Allopurinol [Zyloprim] 300 mg PO DAILY 10/11/17 [History] Hydrochlorothiazide 25 mg PO DAILY 10/11/17 [History] Lisinopril [Zestril] 20 mg PO BID 10/11/17 [History] Simvastatin [Zocor] 20 mg PO DAILY 10/11/17 [History] Ergocalciferol (Vitamin D2) [Vitamin D2] 50,000 unit PO Q7D 09/07/18 [History] traMADol HCL [Ultram] 50 mg PO Q8H PRN 09/07/18 [History] Atenolol [Tenormin] 25 mg PO DAILY tab 09/10/18 [Rx] Follow up Appointment(s)/Referral(s): Keiko Valle MD [Primary Care Provider] - 1-2 days Hao Knight MD [STAFF PHYSICIAN] - 1 Week
[2018-09-10 17:27] LABS: Glucose,Whole Blood 209 mg/dL (75-99)
[2018-09-10 18:33] VITALS: BP 160/89
[2018-09-10 18:36] VITALS: PULSE 45
--- NOTE | 2018-09-11 22:16 | P.PN ---
Subjective Progress Note Date: 09/10/18 (Late entry note) Principal diagnosis: Acute pancreatitis, congestive heart failure likely acute on chronic diastolic heart failure, acute pulmonary edema related to above as well as component of acute pancreatitis, groundglass attenuation at the bases doubt pneumonia appears to be related to above, morbid obesity, sleep disorder breathing and sleep apnea likely to be evaluated further outpatient setting 09/10/2018, patient seen eval examined during the rounds clinically has improved significantly more awake and alert denies any abdominal pain tolerating by mouth well ambulating in the hallway, have discussed at length about sleep disorder breathing and sleep apnea patient would like to be evaluated further will schedule sleep study on outpatient setting 09/09/2018, patient seen eval reexamined during the rounds he is ambulating in the room and hallway breathing more comfortably still have mild pain in the abdomen, hemodynamic status stable denies any cough or sputum production he confirmed that he doesn't snore with apneic events as witnessed by the family members as well as the staff, his labs are reviewed the amylase lipase level are progressively improving 67-year-old male with history of hypertension hypertensive cardiovascular disease and history of excessive call consumption in the past patient the underwent the arthrocentesis of right knee [facility] did have a steroid injection as well has been doing fairly well without any specific problems or issues had his dinner last night with 2 glasses of wine, patient developed abdominal discomfort and pain and eventually came into emergency department for further evaluation, denies any nausea vomiting or diarrhea, 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 Patient does report history of cocaine and marijuana use but denies any use at this time. Patient also denies excessive alcohol consumption. Patient states he stopped drinking 5-6 years ago and occasionaly drinks now. Chest x-ray completed showing mild interstitial edema and pulmonary vascular congestion, patient with cardiomegaly suggest cardiogenic fluid overload. CT of abdomen and pelvis completed showing no evidence of acute appendicitis or bowel obstruction. No CT cholelithiasis. Groundglass Opacities at the lung base noted, appeared to be more claim service representative of fluid overload and heart failure than pneumonia. Small hiatal hernia. Amylase 172 and lipase 2750. Initial creatinine 1.56 and bun 30. EKG also completed showing sinus rhythm with first-degree AV block. Patient denies any loss of consciousness) denies any pain or radiation of pain from the chest denies similar episode of pancreatitis in the past patient does have ongoing history of chronic snoring and sleepiness during the day he has not been formally evaluated for sleep disorder breathing and sleep apnea Objective - Vital Signs Vital signs: Vital Signs Temp 98.5 F 09/10/18 07:30 Pulse 45 L 09/10/18 16:00 Resp 18 09/10/18 07:30 BP 160/89 09/10/18 15:27 Pulse Ox 95 09/10/18 15:27 - Exam - Constitutional General appearance: disheveled, mild distress, no acute distress, obese - EENT Eyes: EOMI, PERRLA, poor dentition, normal appearance ENT: normal oropharynx Ears: bilateral: normal - Neck Carotids: bilateral: upstroke normal Thyroid: bilateral: normal size - Respiratory Respiratory: bilateral: diminished, rales, negative: dullness, rhonchi, wheezing - Cardiovascular Rhythm: regular Heart sounds: normal: S1, S2 - Gastrointestinal General gastrointestinal: normal bowel sounds - Genitourinary Mild diffuse tenderness noted predominantly in the upper quadrants - Neurologic Neurologic: CNII-XII intact - Musculoskeletal Musculoskeletal: gait normal, generalized weakness, strength equal bilaterally - Psychiatric Psychiatric: A&O x's 3, appropriate affect, intact judgment & insight - Labs CBC & Chem 7: 09/10/18 07:15 09/10/18 07:15 Assessment and Plan Assessment: Acute pancreatitis Groundglass attenuation/prominent interstitium doubt related to pneumonia appears more likely related to component of fluid overload and possibly heart failure, however I early acute lung injury related to acute pancreatitis cannot be excluded but less likely Hypertension hypertensive cardiovascular disease LVH Possible sleep disorder breathing and sleep apnea History of extensive smoking and alcohol consumption in the past Plan: Overall plan includes Monitor observe diet closely recommend soft versus clear diet Supportive care for acute pancreatitis Pain control Optimize control of blood pressure Patient has been consult and educated about smoking COPD and sleep disorder breathing and sleep apnea Sleep study and PFT in outpatient setting We'll hold on antibiotics and breathing treatments for now and monitor observe clinical course closely further recommendations pending plan of care as per clinical response of the patient Time with Patient: Greater than 30
--- NOTE | 2018-09-12 10:35 | CDI ---
Documentation Clarification Form Date: 09/12/2018 10:29:00 AM From: Laurence Yi Phone: If questions, call Sarai Singh @ Admit Date: 09/07/2018 8:53:00 PM Patient Name: Sherrell Peoples Visit Number: [id number] Discharge Date:09/10/18 ATTENTION: The Clinical Documentation Specialists (CDI) and [facility] Coding Staff appreciate your assistance in clarifying documentation. Please respond to the clarification below the line at the bottom and electronically sign. The CDI & [facility] Coding staff will review the response and follow-up if needed. Please note: Queries are made part of the Legal Health Record. If you have any questions, please contact the author of this message via ITS. Keiko Stephens MD Final PN by Cardiology congestive heart failure likely acute on chronic diastolic heart failure, acute pulmonary edema related to above as well as component of acute pancreatitis. Dischage diagnosis includes first degree AV block. Clinical Indicators: PP-Tjg-[id number]-Type Natriuretic Pept(pg/mL) 59 Echocardiogram Results:2-D echo completed showing EF of 55-60% Chest X Ray:mild interstitial edema and pulmonary vascular congestion, effusion with cardiomegaly Treatment: In your professional opinion, can you please clarify the acuity and type of CHF if known? Systolic Heart Failure: Acute Chronic Acute on Chronic Diastolic Heart Failure: Acute Chronic Acute on Chronic Systolic & Diastolic Heart Failure: Acute Chronic Acute on Chronic Heart Failure Unable to Determine Other, please specify MTDD
== END 2018-09-10 18:32 | disposition home or self-care (01) | DRG 438 ==
LOC: EC 18:45 → 4MS4W 20:53 → 4SSUR 09-08 00:36 → 3SCARD 09-10 14:09
PROVIDERS: ADMIT Internal Medicine; ATTEND Internal Medicine
PROC: B2151ZZ Fluoroscopy of Left Heart using Low Osmolar Contrast (ICD-10-PCS; 2018-09-10)
PROC: B2111ZZ Fluoroscopy of Multiple Coronary Arteries using Low Osmolar Contrast (ICD-10-PCS; 2018-09-10)
PROC: 4A023N7 Measurement of Cardiac Sampling and Pressure, Left Heart, Percutaneous Approach (ICD-10-PCS; principal; 2018-09-10 13:00)
DX: K85.90 Acute pancreatitis without necrosis or infection, unspecified (principal); I50.33 Acute on chronic diastolic (congestive) heart failure; N17.9 Acute kidney failure, unspecified; K44.9 Diaphragmatic hernia without obstruction or gangrene; I44.0 Atrioventricular block, first degree; E78.5 Hyperlipidemia, unspecified; M06.9 Rheumatoid arthritis, unspecified; G40.909 Epilepsy, unspecified, not intractable, without status epilepticus; Z79.899 Other long term (current) drug therapy; Z79.84 Long term (current) use of oral hypoglycemic drugs; M10.9 Gout, unspecified; Z96.651 Presence of right artificial knee joint; F17.290 Nicotine dependence, other tobacco product, uncomplicated; E11.9 Type 2 diabetes mellitus without complications; I11.0 Hypertensive heart disease with heart failure; E66.01 Morbid (severe) obesity due to excess calories; Z68.35 Body mass index [BMI] 35.0-35.9, adult; Z79.891 Long term (current) use of opiate analgesic; Y90.6 Blood alcohol level of 120-199 mg/100 ml; F10.129 Alcohol abuse with intoxication, unspecified; G47.33 Obstructive sleep apnea (adult) (pediatric); I50.9 Heart failure, unspecified
CPT/HCPCS: 36415; 71046; 74176; 80053; 80061; 80320; 81001; 82150; 82550; 82553; 82787; 83036; 83690; 83880; 84484; 85025; 85610; 85730; 86038; 87077; 87086; 87186; 90732; 93005; 93306; 93458; 96374; 96375; 99285

== ENCOUNTER 2021-04-09 02:52 | Emergency (ER) | payer MEDICARE ==
[2021-04-09 03:09] VITALS: TEMP 98.7
[2021-04-09] MEDS ORDERED: SODIUM CHLORIDE 0.9% 1,000 ML IV STA (03:36)
--- NOTE | 2021-04-09 03:58 | ED ---
Headache HPI - General Chief Complaint: Headache Stated Complaint: headache Time Seen by Provider: 04/09/21 03:26 Mode of arrival: EMS Limitations: no limitations - Related Data Home Medications Medication Instructions Recorded Confirmed Allopurinol [Zyloprim] 300 mg PO DAILY 10/11/17 09/07/18 Simvastatin [Zocor] 20 mg PO DAILY 10/11/17 09/07/18 hydroCHLOROthiazide 25 mg PO DAILY 10/11/17 09/07/18 lisinopriL [Zestril] 20 mg PO BID 10/11/17 09/07/18 Ergocalciferol (Vitamin D2) 50,000 unit PO Q7D 09/07/18 09/07/18 [Vitamin D2] traMADol HCL [Ultram] 50 mg PO Q8H PRN 09/07/18 09/07/18 Previous Rx's Medication Instructions Recorded atenoloL [Tenormin] 25 mg PO DAILY tab 09/10/18 Allergies Allergy/AdvReac Type Severity Reaction Status Date / Time No Known Allergies Allergy Verified 09/07/18 19:18 Review of Systems ROS Statement: Those systems with pertinent positive or pertinent negative responses have been documented in the HPI. ROS Other: All systems not noted in ROS Statement are negative. Past Medical History Past Medical History: Diabetes Mellitus, Hyperlipidemia, Hypertension, Rheumatoid Arthritis (RA), Seizure Disorder Additional Past Medical History / Comment(s): GOUT. dc 2017 quad tendon rupture rt knee History of Any Multi-Drug Resistant Organisms: None Reported Past Surgical History: Orthopedic Surgery Additional Past Surgical History / Comment(s): pt stated has had 2 rt knee arthroscopies and 2 rt knee replacements, lt shoulder sx has titanium anchors, ganglion cysts lt wrist Past Anesthesia/Blood Transfusion Reactions: No Reported Reaction Past Psychological History: No Psychological Hx Reported Past Alcohol Use History: Abuse Past Drug Use History: Cocaine, Marijuana - Past Family History Mother Family Medical History: Unable to Obtain Additional Family Medical History / Comment(s): parents pt was raised by grandmother General Exam Limitations: no limitations Course Vital Signs 04/09/21 03:03 Temperature 98.7 F Pulse Rate 54 L Respiratory 18 Rate Blood Pressure 144/83 O2 Sat by Pulse 97 Oximetry Medical Decision Making - Lab Data Result diagrams: 04/09/21 03:46 04/09/21 03:46 Lab Results 06/04/09/21 04/09/21 Range/Units 03:46 03:46 03:46 WBC 5.3 (3.8-10.6) k/uL RBC 3.68 L (4.30-5.90) m/uL Hgb 12.5 L (13.0-17.5) gm/dL Hct 36.3 L (39.0-53.0) % MCV 98.8 (80.0-100.0) fL MCH 34.0 (25.0-35.0) pg MCHC 34.4 (31.0-37.0) g/dL RDW 13.9 (11.5-15.5) % Plt Count 194 (150-450) k/uL MPV 6.7 Neutrophils % 45 % Lymphocytes % 43 % Monocytes % 6 % Eosinophils % 3 % Basophils % 1 % Neutrophils # 2.4 (1.3-7.7) k/uL Lymphocytes # 2.3 (1.0-4.8) k/uL Monocytes # 0.3 (0-1.0) k/uL Eosinophils # 0.2 (0-0.7) k/uL Basophils # 0.0 (0-0.2) k/uL Sodium 135 L (137-145) mmol/L Potassium 3.7 (3.5-5.1) mmol/L Chloride 103 (98-107) mmol/L Carbon Dioxide 28 (22-30) mmol/L Anion Gap 4 mmol/L BUN 18 (9-20) mg/dL Creatinine 0.80 (0.66-1.25) mg/dL Est GFR (CKD-EPI)AfAm >90 (>60 ml/min/1.73 sqM) Est GFR (CKD-EPI)NonAf >90 (>60 ml/min/1.73 sqM) Glucose 91 (74-99) mg/dL Calcium 9.1 (8.4-10.2) mg/dL Phosphorus 3.8 (2.5-4.5) mg/dL Magnesium 1.4 L (1.6-2.3) mg/dL Total Bilirubin 0.5 (0.2-1.3) mg/dL AST 24 (17-59) U/L ALT 14 (4-49) U/L Alkaline Phosphatase 69 (38-126) U/L Troponin I <0.012 (0.000-0.034) ng/mL Total Protein 6.4 (6.3-8.2) g/dL Albumin 3.5 (3.5-5.0) g/dL Lipase 201 (23-300) U/L Serum Alcohol <10 mg/dL Disposition Clinical Impression: Headache, Hypertension Disposition: HOME SELF-CARE Condition: Good Instructions (If sedation given, give patient instructions): Acute Headache (ED) Is patient prescribed a controlled substance at d/c from ED?: No Referrals: Keiko Valle MD [Primary Care Provider] - 1-2 days
[2021-04-09 04:04] LABS: Basophils % (A) 1 %; Eosinophils # (A) 0.2 k/uL (0-0.7); Eosinophils % (A) 3 %; HCT 36.3 % (39.0-53.0); HGB 12.5 gm/dL (13.0-17.5); Lymphocytes # (A) 2.3 k/uL (1.0-4.8); Lymphocytes % (A) 43 %; MCHC 34.4 g/dL (31.0-37.0); MCV 98.8 fL (80.0-100.0); Mean Platelet Volume 6.7; Monocytes # (A) 0.3 k/uL (0-1.0); Monocytes % (A) 6 %; Neutrophils # (A) 2.4 k/uL (1.3-7.7); Neutrophils % (A) 45 %; Platelet Count 194 k/uL (150-450); RBC 3.68 m/uL (4.30-5.90); RDW 13.9 % (11.5-15.5); WBC 5.3 k/uL (3.8-10.6)
[2021-04-09 04:13] LABS: ALT 14 U/L (4-49); AST 24 U/L (17-59); African American GFR (CKD) >90 (>60 ml/min/1.73 sqM); Albumin 3.5 g/dL (3.5-5.0); Alcohol <10 mg/dL; Alkaline Phosphatase 69 U/L (38-126); Anion Gap 4 mmol/L; Blood Urea Nitrogen 18 mg/dL (9-20); Calcium 9.1 mg/dL (8.4-10.2); Carbon Dioxide 28 mmol/L (22-30); Chloride 103 mmol/L (98-107); Glucose 91 mg/dL (74-99); Lipase 201 U/L (23-300); Magnesium 1.4 mg/dL (1.6-2.3); Non-African American GFR(CKD) >90 (>60 ml/min/1.73 sqM); Phosphorus 3.8 mg/dL (2.5-4.5); Potassium 3.7 mmol/L (3.5-5.1); Sodium 135 mmol/L (137-145); Total Bilirubin 0.5 mg/dL (0.2-1.3); Total Protein 6.4 g/dL (6.3-8.2)
--- NOTE | 2021-04-09 04:30 | CT ---
EXAMINATION TYPE: CT brain wo con DATE OF EXAM: 04/09/2021 COMPARISON: 11/20/2013 HISTORY: Headache. Prior on PACS CT DLP: 1157.4 mGycm Automated exposure control for dose reduction was used. Images obtained of the brain without contrast. Ventricles have normal size. There is no mass effect nor midline shift. There is no sign of intracran ial hemorrhage. The calvarium is intact. There is no evidence of cerebral edema. Skull base is intact . There is normal aeration of the mastoid sinuses. There is some mucosal thickening in the ethmoid ai r cells. IMPRESSION: Negative CT scan of the brain. Mild ethmoid sinusitis. No change.
[2021-04-09] MEDS ORDERED: diphenhydrAMINE 50 MG/ML 1 ML VIAL IVP STA (05:42)
[2021-04-09] MEDS ORDERED: PROCHLORPERAZINE INJ 10 MG/2 ML VIAL IVP STA (05:42)
[2021-04-09] MEDS ORDERED: KETOROLAC 15 MG/ML 1 ML VIAL IVP STA (05:42)
[2021-04-09 06:29] VITALS: BP 153/84; PULSE 57; RESP 20
== END 2021-04-09 06:56 | disposition home or self-care (01) ==
LOC: EC 02:52
DX: I10 Essential (primary) hypertension (principal); E11.9 Type 2 diabetes mellitus without complications; E78.5 Hyperlipidemia, unspecified; G40.909 Epilepsy, unspecified, not intractable, without status epilepticus; M06.9 Rheumatoid arthritis, unspecified; F12.90 Cannabis use, unspecified, uncomplicated; F14.90 Cocaine use, unspecified, uncomplicated
CPT/HCPCS: 36415; 80053; 83690; 83735; 84100; 84484; 85025; 70450; 99284; 96374; 96375 ×2; 96361; G0480; J1200; J0780; J1885; 80320

== ENCOUNTER 2021-04-17 06:15 | Emergency (ER) | payer MEDICARE ==
[2021-04-17 06:23] VITALS: BP 141/84; PULSE 61; RESP 18; TEMP 98.2
[2021-04-17] MEDS ORDERED: OXYMETAZOLINE 0.05% NASL SPRAY 1 SPRAY BOTTLE NASAL STA (06:29)
--- NOTE | 2021-04-17 06:30 | ED ---
Recheck HPI - General Chief Complaint: Recheck/Abnormal Lab/Rx Stated Complaint: Nose Bleed Time Seen by Provider: 04/17/21 06:25 Source: patient, RN notes reviewed Mode of arrival: ambulatory Limitations: no limitations - History of Present Illness Initial Comments: 70-year-old male presents emergency Department with chief complaint of epistaxis. Patient states that simply left side. It stopped. Patient states his blood pressure meds proximal one hour ago. She states she had a nosebleed one week ago and states that his blood pressure is elevated at the time. He was concerns blood pressure is elevated so he so presented emergency department. Patient denies any active bleeding no headache no dizziness no trauma. No other complaints. - Related Data Home Medications Medication Instructions Recorded Confirmed Allopurinol [Zyloprim] 300 mg PO DAILY 10/11/17 09/07/18 Simvastatin [Zocor] 20 mg PO DAILY 10/11/17 09/07/18 hydroCHLOROthiazide 25 mg PO DAILY 10/11/17 09/07/18 lisinopriL [Zestril] 20 mg PO BID 10/11/17 09/07/18 Ergocalciferol (Vitamin D2) 50,000 unit PO Q7D 09/07/18 09/07/18 [Vitamin D2] traMADol HCL [Ultram] 50 mg PO Q8H PRN 09/07/18 09/07/18 Previous Rx's Medication Instructions Recorded atenoloL [Tenormin] 25 mg PO DAILY tab 09/10/18 Allergies Allergy/AdvReac Type Severity Reaction Status Date / Time No Known Allergies Allergy Verified 04/17/21 06:23 Review of Systems ROS Statement: Those systems with pertinent positive or pertinent negative responses have been documented in the HPI. ROS Other: All systems not noted in ROS Statement are negative. Past Medical History Past Medical History: Diabetes Mellitus, Hyperlipidemia, Hypertension, Rheumatoid Arthritis (RA), Seizure Disorder Additional Past Medical History / Comment(s): GOUT. dc 2017 quad tendon rupture rt knee History of Any Multi-Drug Resistant Organisms: None Reported Past Surgical History: Orthopedic Surgery Additional Past Surgical History / Comment(s): pt stated has had 2 rt knee arthroscopies and 2 rt knee replacements, lt shoulder sx has titanium anchors, ganglion cysts lt wrist Past Anesthesia/Blood Transfusion Reactions: No Reported Reaction Past Psychological History: No Psychological Hx Reported Smoking Status: Never smoker Past Alcohol Use History: Abuse Past Drug Use History: Cocaine, Marijuana - Past Family History Mother Family Medical History: Unable to Obtain Additional Family Medical History / Comment(s): parents pt was raised by grandmother General Exam Limitations: no limitations General appearance: alert, in no apparent distress Head exam: Present: atraumatic, normocephalic, normal inspection ENT exam: Present: mucous membranes moist, TM's normal bilaterally. Absent: normal exam (No active bleeding, dry blood noted in the left nare) Neck exam: Present: normal inspection, full ROM. Absent: tenderness, meningismus, lymphadenopathy Respiratory exam: Present: normal lung sounds bilaterally. Absent: respiratory distress, wheezes, rales, rhonchi, stridor Cardiovascular Exam: Present: regular rate, normal rhythm, normal heart sounds. Absent: systolic murmur, diastolic murmur, rubs, gallop, clicks Course Vital Signs 04/17/21 06:19 Temperature 98.2 F Pulse Rate 61 Respiratory 18 Rate Blood Pressure 141/84 O2 Sat by Pulse 99 Oximetry Medical Decision Making - Medical Decision Making Patient's blood pressure is mildly elevated patient just took his medications. Patient we given Afrin nose spray, will be discharged in stable condition. Advised to use Afrinspray for no longer than 3 days. Disposition Clinical Impression: Epistaxis Disposition: HOME SELF-CARE Condition: Stable Instructions (If sedation given, give patient instructions): Nosebleed (ED) Additional Instructions: Please return to the Emergency Department if symptoms worsen or any other concerns. Is patient prescribed a controlled substance at d/c from ED?: No Referrals: Keiko Valle MD [Primary Care Provider] - 1-2 days Time of Disposition: 06:30
== END 2021-04-17 06:42 | disposition home or self-care (01) ==
LOC: EC 06:15
DX: R04.0 Epistaxis (principal); I10 Essential (primary) hypertension; E11.9 Type 2 diabetes mellitus without complications; E78.5 Hyperlipidemia, unspecified; G40.909 Epilepsy, unspecified, not intractable, without status epilepticus; M06.9 Rheumatoid arthritis, unspecified; F14.90 Cocaine use, unspecified, uncomplicated; F12.90 Cannabis use, unspecified, uncomplicated
CPT/HCPCS: 99283

== ENCOUNTER 2021-07-14 06:07 | Emergency (ER) | payer MEDICARE ==
[2021-07-14] MEDS ORDERED: SODIUM CHLORIDE 0.9% 1,000 ML IV STA (06:24)
[2021-07-14] MEDS ORDERED: MECLIZINE 12.5 MG TAB PO STA (06:38)
[2021-07-14] MEDS ORDERED: LORazepam 2 MG/ML INJ IV STA (06:38)
--- NOTE | 2021-07-14 06:41 | ED ---
General Adult HPI - General Chief complaint: Dizziness Stated complaint: Weakness Time Seen by Provider: 07/14/21 06:11 Source: patient, EMS, RN notes reviewed Mode of arrival: EMS Limitations: no limitations - History of Present Illness Initial comments: This a 70-year-old male presents emergency Department with chief complaint of unable sleep, dizziness. Patient states he's been having few bouts of dizziness but states that he's been so anxious today is not able to sleep. Patient just feels very tired no new medication changes. Patient does admit to marijuana. Denies any chest pain palpitations no current vomiting states been having some nausea no headache no focal weakness. EMS reports that he is complaining of tingling in his toes, hands and was very anxious - Related Data Home Medications Medication Instructions Recorded Confirmed Allopurinol [Zyloprim] 300 mg PO DAILY 10/11/17 07/14/21 Simvastatin [Zocor] 20 mg PO DAILY 10/11/17 07/14/21 hydroCHLOROthiazide 25 mg PO DAILY 10/11/17 07/14/21 lisinopriL [Zestril] 20 mg PO AC-BID 10/11/17 07/14/21 traMADol HCL [Ultram] 50 mg PO Q6H PRN 09/07/18 07/14/21 Ergocalciferol [Vitamin D2 (1250 1,250 mcg PO FR 07/14/21 07/14/21 Mcg = [id number] Iu)] atenoloL [Tenormin] 25 mg PO AC-BID 07/14/21 07/14/21 metFORMIN HCL 500 mg PO AC-BID 07/14/21 07/14/21 Previous Rx's Medication Instructions Recorded Sulfamethox-Tmp 800-160Mg [Bactrim 1 each PO Q12HR #14 tab 07/14/21 Ds] Allergies Allergy/AdvReac Type Severity Reaction Status Date / Time No Known Allergies Allergy Verified 07/14/21 07:39 Review of Systems ROS Statement: Those systems with pertinent positive or pertinent negative responses have been documented in the HPI. ROS Other: All systems not noted in ROS Statement are negative. Past Medical History Past Medical History: Diabetes Mellitus, Hyperlipidemia, Hypertension, Rheumatoid Arthritis (RA), Seizure Disorder Additional Past Medical History / Comment(s): GOUT. dc 2017 quad tendon rupture rt knee History of Any Multi-Drug Resistant Organisms: None Reported Past Surgical History: Orthopedic Surgery Additional Past Surgical History / Comment(s): pt stated has had 2 rt knee arthroscopies and 2 rt knee replacements, lt shoulder sx has titanium anchors, ganglion cysts lt wrist Past Anesthesia/Blood Transfusion Reactions: No Reported Reaction Past Psychological History: Anxiety Smoking Status: Current some day smoker Past Alcohol Use History: Daily Past Drug Use History: Marijuana - Past Family History Mother Family Medical History: Unable to Obtain Additional Family Medical History / Comment(s): parents pt was raised by grandmother General Exam Limitations: no limitations General appearance: alert, in no apparent distress, anxious Head exam: Present: atraumatic, normocephalic, normal inspection Eye exam: Present: normal appearance, PERRL, EOMI. Absent: scleral icterus, conjunctival injection, periorbital swelling ENT exam: Present: normal exam, normal oropharynx, mucous membranes moist Neck exam: Present: normal inspection, full ROM. Absent: tenderness, meningismus, lymphadenopathy Respiratory exam: Present: normal lung sounds bilaterally. Absent: respiratory distress, wheezes, rales, rhonchi, stridor Cardiovascular Exam: Present: regular rate, normal rhythm, normal heart sounds. Absent: systolic murmur, diastolic murmur, rubs, gallop, clicks GI/Abdominal exam: Present: soft, normal bowel sounds. Absent: distended, tenderness, guarding, rebound, rigid Course Vital Signs 07/14/21 07/14/21 07/14/21 06:08 06:53 08:19 Temperature 99.6 F Pulse Rate 77 69 Respiratory 20 20 18 Rate Blood Pressure 148/76 O2 Sat by Pulse 97 97 Oximetry Medical Decision Making - Medical Decision Making This a 70-year-old male presented for episodes of dizziness. His dizziness has improved. Labs reveal evidence of edema tract infection nitrite positive. Patient weeks or any antibiotics. Patient was hydrated will be discharged in stable condition. - Lab Data Result diagrams: 07/14/21 06:31 07/14/21 06:31 Lab Results 07/14/21 07/14/21 07/14/21 Range/Units 06:31 06:31 06:31 WBC 13.1 H (3.8-10.6) k/uL RBC 3.73 L (4.30-5.90) m/uL Hgb 12.4 L (13.0-17.5) gm/dL Hct 37.0 L (39.0-53.0) % MCV 99.0 (80.0-100.0) fL MCH 33.2 (25.0-35.0) pg MCHC 33.5 (31.0-37.0) g/dL RDW 13.4 (11.5-15.5) % Plt Count 166 (150-450) k/uL MPV 7.2 Neutrophils % 86 % Lymphocytes % 8 % Monocytes % 3 % Eosinophils % 1 % Basophils % 0 % Neutrophils # 11.3 H (1.3-7.7) k/uL Lymphocytes # 1.1 (1.0-4.8) k/uL Monocytes # 0.4 (0-1.0) k/uL Eosinophils # 0.2 (0-0.7) k/uL Basophils # 0.0 (0-0.2) k/uL Sodium 135 L (137-145) mmol/L Potassium 3.7 (3.5-5.1) mmol/L Chloride 103 (98-107) mmol/L Carbon Dioxide 26 (22-30) mmol/L Anion Gap 6 mmol/L BUN 13 (9-20) mg/dL Creatinine 0.92 (0.66-1.25) mg/dL Est GFR (CKD-EPI)AfAm >90 (>60 ml/min/1.73 sqM) Est GFR (CKD-EPI)NonAf 85 (>60 ml/min/1.73 sqM) Glucose 105 H (74-99) mg/dL Calcium 8.5 (8.4-10.2) mg/dL Magnesium 1.3 L (1.6-2.3) mg/dL Total Bilirubin 1.1 (0.2-1.3) mg/dL AST 38 (17-59) U/L ALT 18 (4-49) U/L Alkaline Phosphatase 61 (38-126) U/L Troponin I (0.000-0.034) ng/mL Total Protein 6.6 (6.3-8.2) g/dL Albumin 3.2 L (3.5-5.0) g/dL Urine Color Yellow Urine Appearance Clear (Clear) Urine pH 5.5 (5.0-8.0) Ur Specific [place] 1.025 (1.001-1.035) Urine Protein 2+ H (Negative) Urine Glucose (UA) Negative (Negative) Urine Ketones 1+ H (Negative) Urine Blood Moderate H (Negative) Urine Nitrite Positive (Negative) Urine Bilirubin Negative (Negative) Urine Urobilinogen 2.0 (<2.0) mg/dL Ur Leukocyte Esterase Negative (Negative) Urine WBC 1 (0-5) /hpf Ur Squamous Epith Cells <1 (0-4) /hpf Urine Bacteria Many H (None) /hpf Urine Mucus Moderate H (None) /hpf Urine Opiates Screen Not Detected (NotDetected) Ur Oxycodone Screen Not Detected (NotDetected) Urine Methadone Screen Not Detected (NotDetected) Ur Propoxyphene Screen Not Detected (NotDetected) Ur Barbiturates Screen Not Detected (NotDetected) U Tricyclic Antidepress Not Detected (NotDetected) Ur Phencyclidine Scrn Not Detected (NotDetected) Ur Amphetamines Screen Not Detected (NotDetected) U Methamphetamines Scrn Not Detected (NotDetected) U Benzodiazepines Scrn Detected H (NotDetected) Urine Cocaine Screen Not Detected (NotDetected) U Marijuana (THC) Screen Detected H (NotDetected) 07/14/21 Range/Units 06:31 WBC (3.8-10.6) k/uL RBC (4.30-5.90) m/uL Hgb (13.0-17.5) gm/dL Hct (39.0-53.0) % MCV (80.0-100.0) fL MCH (25.0-35.0) pg MCHC (31.0-37.0) g/dL RDW (11.5-15.5) % Plt Count (150-450) k/uL MPV Neutrophils % % Lymphocytes % % Monocytes % % Eosinophils % % Basophils % % Neutrophils # (1.3-7.7) k/uL Lymphocytes # (1.0-4.8) k/uL Monocytes # (0-1.0) k/uL Eosinophils # (0-0.7) k/uL Basophils # (0-0.2) k/uL Sodium (137-145) mmol/L Potassium (3.5-5.1) mmol/L Chloride (98-107) mmol/L Carbon Dioxide (22-30) mmol/L Anion Gap mmol/L BUN (9-20) mg/dL Creatinine (0.66-1.25) mg/dL Est GFR (CKD-EPI)AfAm (>60 ml/min/1.73 sqM) Est GFR (CKD-EPI)NonAf (>60 ml/min/1.73 sqM) Glucose (74-99) mg/dL Calcium (8.4-10.2) mg/dL Magnesium (1.6-2.3) mg/dL Total Bilirubin (0.2-1.3) mg/dL AST (17-59) U/L ALT (4-49) U/L Alkaline Phosphatase (38-126) U/L Troponin I 0.024 (0.000-0.034) ng/mL Total Protein (6.3-8.2) g/dL Albumin (3.5-5.0) g/dL Urine Color Urine Appearance (Clear) Urine pH (5.0-8.0) Ur Specific [place] (1.001-1.035) Urine Protein (Negative) Urine Glucose (UA) (Negative) Urine Ketones (Negative) Urine Blood (Negative) Urine Nitrite (Negative) Urine Bilirubin (Negative) Urine Urobilinogen (<2.0) mg/dL Ur Leukocyte Esterase (Negative) Urine WBC (0-5) /hpf Ur Squamous Epith Cells (0-4) /hpf Urine Bacteria (None) /hpf Urine Mucus (None) /hpf Urine Opiates Screen (NotDetected) Ur Oxycodone Screen (NotDetected) Urine Methadone Screen (NotDetected) Ur Propoxyphene Screen (NotDetected) Ur Barbiturates Screen (NotDetected) U Tricyclic Antidepress (NotDetected) Ur Phencyclidine Scrn (NotDetected) Ur Amphetamines Screen (NotDetected) U Methamphetamines Scrn (NotDetected) U Benzodiazepines Scrn (NotDetected) Urine Cocaine Screen (NotDetected) U Marijuana (THC) Screen (NotDetected) Disposition Clinical Impression: Fatigue, UTI (urinary tract infection), Dizziness Disposition: HOME SELF-CARE Condition: Stable Instructions (If sedation given, give patient instructions): Dizziness (ED) Additional Instructions: Please return to the Emergency Department if symptoms worsen or any other concerns. Prescriptions: Sulfamethox-Tmp 800-160Mg [Bactrim Ds] 1 each PO Q12HR #14 tab Is patient prescribed a controlled substance at d/c from ED?: No Referrals: Keiko Valle MD [Primary Care Provider] - 1-2 days Time of Disposition: 09:52
[2021-07-14 06:48] LABS: Basophils % (A) 0 %; Eosinophils # (A) 0.2 k/uL (0-0.7); Eosinophils % (A) 1 %; HGB 12.4 gm/dL (13.0-17.5); Lymphocytes # (A) 1.1 k/uL (1.0-4.8); Lymphocytes % (A) 8 %; MCH 33.2 pg (25.0-35.0); MCHC 33.5 g/dL (31.0-37.0); Mean Platelet Volume 7.2; Monocytes # (A) 0.4 k/uL (0-1.0); Monocytes % (A) 3 %; Neutrophils # (A) 11.3 k/uL (1.3-7.7); Neutrophils % (A) 86 %; Platelet Count 166 k/uL (150-450); RBC 3.73 m/uL (4.30-5.90); RDW 13.4 % (11.5-15.5); WBC 13.1 k/uL (3.8-10.6)
[2021-07-14 06:58] LABS: ALT 18 U/L (4-49); African American GFR (CKD) >90 (>60 ml/min/1.73 sqM); Albumin 3.2 g/dL (3.5-5.0); Anion Gap 6 mmol/L; Blood Urea Nitrogen 13 mg/dL (9-20); Calcium 8.5 mg/dL (8.4-10.2); Carbon Dioxide 26 mmol/L (22-30); Chloride 103 mmol/L (98-107); Glucose 105 mg/dL (74-99); Non-African American GFR(CKD) 85 (>60 ml/min/1.73 sqM); Sodium 135 mmol/L (137-145); Total Bilirubin 1.1 mg/dL (0.2-1.3); Total Protein 6.6 g/dL (6.3-8.2)
[2021-07-14 07:08] LABS: AST 38 U/L (17-59); Magnesium 1.3 mg/dL (1.6-2.3); Potassium 3.7 mmol/L (3.5-5.1)
[2021-07-14 07:09] LABS: Alkaline Phosphatase 61 U/L (38-126)
[2021-07-14] MEDS ORDERED: MAGNESIUM OXIDE 400 MG TAB PO STA (07:33)
[2021-07-14] MEDS ORDERED: diphenhydrAMINE 50 MG/ML 1 ML VIAL IVP STA (08:59)
[2021-07-14 09:19] LABS: Appearance,Urine Clear (Clear); Bacteria,Urine Many /hpf; Bilirubin,Urine Negative (Negative); Blood,Urine Moderate (Negative); Color,Urine Yellow; Glucose,Urine (UA) Negative (Negative); Ketones,Urine 1+ (Negative); Leukocyte Esterase,Urine Negative (Negative); Mucus,Urine Moderate /hpf; Nitrite,Urine Positive (Negative); PH, Urine 5.5 (5.0-8.0); Protein,Urine 2+ (Negative); Specific Gravity,Urine 1.025 (1.001-1.035); Squamous Epithelial Cell,Urine <1 /hpf (0-4); WBC,Urine 1 /hpf (0-5)
[2021-07-14 09:39] LABS: Amphetamine Screen,Urine Not Detected (NotDetected); Barbiturate Screen,Urine Not Detected (NotDetected); Benzodiazepines Screen,Urine Detected (NotDetected); Cocaine Screen,Urine Not Detected (NotDetected); Methadone Screen, Urine Not Detected (NotDetected); Opiate Screen,Urine Not Detected (NotDetected); Oxycodone Screen, Urine Not Detected (NotDetected); Phencyclidine Screen,Urine Not Detected (NotDetected); Tricyclic Antidepressant,Urine Not Detected (NotDetected); Urn Cannabinoid Scrn Detected (NotDetected)
[2021-07-14] MEDS ORDERED: IBUPROFEN 600 MG TAB PO STA (10:18)
[2021-07-14] MEDS ORDERED: ACETAMINOPHEN TAB 500 MG TAB PO STA (10:18)
[2021-07-14 11:27] VITALS: BP 133/68; PULSE 74; RESP 16; TEMP 102.2
== END 2021-07-14 11:55 | disposition home or self-care (01) ==
LOC: EC 06:07
DX: R42 Dizziness and giddiness (principal); R53.83 Other fatigue; N39.0 Urinary tract infection, site not specified; I10 Essential (primary) hypertension; E11.9 Type 2 diabetes mellitus without complications; E78.5 Hyperlipidemia, unspecified; F41.9 Anxiety disorder, unspecified; F17.200 Nicotine dependence, unspecified, uncomplicated; F12.90 Cannabis use, unspecified, uncomplicated; Z79.84 Long term (current) use of oral hypoglycemic drugs
CPT/HCPCS: 99284; 96374; 96375; 96361; 36415; 93005; 80053; 83735; 84484; 85025; 81001; 80306; 87635; J2060; J1200